=== PATIENT | female | born 1970 | race Caucasian/White ===

== ENCOUNTER 2016-05-22 22:44 | Emergency (ER) | payer OTHER ==
--- NOTE | 2016-05-23 00:07 | ED NURSING NOTES ---
Clinical Report - Nurses [facility] [address] [place] [address] 05/22/2016 22:43 Patient: SHARITA SWANN TRIAGE Triage time 2251. Acuity: LEVEL 4. Chief Complaint: INJURY TO LEFT FOOT. --22:57 Adrian Amador R.N. 22:51 05/22/16. BP: 119/69. HR: 88. RR: 16. O2 saturation: 100%. Temp: 98 F. Pain level now 09/08. --22:57 Adrian Amador R.N. Weight: 55.7 kg stated. Height/Length: 62 inches Per Patient. BMI: 22.5. --22:54 Adrian Amador R.N. Medications None. --22:53 Adrian Amador R.N. Allergies Amoxicillin. Morphine and Related. Penicillins. Sulfa Antibiotics. --22:53 Adrian Amador R.N. History Arrived by private vehicle. Historian: patient. Accompanied by friend. This occurred (about 26 hours ago). Mechanism of injury: fell. ( pt tripped over curb walking home from store. walked home after but pain/swelling increased with time.). She has had back pain. Treatment FNPS: None. PAST MEDICAL HX: ( pt up and walking on it all day today). SOCIAL HX: Heavy tobacco smoker- less than 1 pack per day. FALL RISK ASSESSMENT: Fall risk assessment completed. No fall risk identified. NUTRITIONAL RISK ASSESSMENT: The nutritional risk assessment revealed no deficiencies. FUNCTIONAL ASSESSMENT: Functional assessment: no impairments noted. LEARNING NEEDS ASSESSMENT: The learning needs assessment revealed no barriers. SKIN INTEGRITY ASSESSMENT: Skin integrity risk assessment completed. No skin integrity risk identified. --22:57 Adrian Amador R.N. PROBLEMS: Conjunctivitis. Otitis Media. Dental Pain. Flank Pain. Sprain. Costochondritis. Constipation. Gestational diabetes mellitus. Nasal Fracture. Sinusitis. Bronchitis. URI. Lifestyle / Substance Problems. Lower Extremity Pain. Fall. Myofascial Strain. Dental Abscess. Abdominal Pain. Back Pain. Dental Caries. Acute Pain. Nephrolithiasis. Diabetes Mellitus. Immunizations. . Tetanus Status. Abscess. Asthma. LNMP - Last Normal Menstrual Period. --:53 Adrian Amador R.N. Renal Colic [RuleOut]. --:53 Adrian Amador R.N. ADDITIONAL SURGERIES: Cholecystectomy. Laparoscopy. Lithotripsy. --:53 Adrian Amador R.N. Interventions ID band on patient. --22:57 Adrian Amador R.N. PHYSICAL ASSESSMENT GENERAL / NEURO / PSYCH: Oriented X 4. Alert. Appears in no acute distress. EXTREMITIES: Capillary refill is less than 2 seconds in the extremities. Extremity pulses are within normal limits. Extremities exhibit normal ROM. Neuro-vascular status intact to the extremity. Normal gait. Left foot: tenderness and swelling of the plantar aspect of the foot and first toe. Limited weight bearing secondary to pain. SKIN: Skin intact. Skin is warm and dry. --:57 Adrian Amador R.N. NURSING PROGRESS NOTES Extremity elevated. Reassurance given. Patient identifiers checked. Call light placed in reach. Bed placed in lowest position. Brakes of bed on. --22:58 Adrian Amador R.N. ( stiff soled shoe applied to left foot). --00:15 Carlos Alexis, ARTURO Rfid Engineer. DISPOSITION / DISCHARGE Departure time: 6. Condition at departure: improved. No learning barriers present. Discharge instructions provided and reviewed with the patient. Reviewed warnings. Reviewed medication(s). Treatments reviewed. Activity restrictions reviewed. Patient verbalized understanding. Written instructions provided in Bhutanese. The patient was discharged by the physician. She was discharged home and accompanied by family. She left the Emergency Department ambulatory and via private vehicle. Patient driving. --00:18 Adrian Amador R.N. 00:17 05/23/16. BP: 120/70. HR: 88. RR: 16. O2 saturation: 98%. Temp: 98 F. Pain level now 3/10. --00:18 Adrian Amador R.N. Locked/Released at 05/23/2016 0:18 by Adrian Amador R.N.
--- NOTE | 2016-05-23 00:07 | ED ORDER SUMMARY ---
..... Patient: SHARITA SWANN OrderSheet [facility] VisitID: [id number] [address] [place] [address] 45y, F Registration Date/Time: 05/22/2016 ORDER SHEET Weight: 55.7 kg (stated) Allergies: Amoxicillin, Morphine and Related, Penicillins, Sulfa Antibiotics GENERAL ORDERS: Foot 3V Left Urgent (23:50 05/22/2016 Re DASILVA) (Ack 23:56 Maximo) (0:02 Shaina) Orthopedic Shoe (00:15 05/23/2016 Jeromy ER Supervisor Dog License Officer verbal order read back to Re DASILVA) (0:15 Jeromy ER Supervisor Dog License Officer) MEDICATION ORDERS: IV FLUIDS: ORDER SHEET NOTES: [Electronically signed by Adrian Amador R.N. (00:18 05/23/2016)] [Electronically signed by Felipe Cruz MD (08:05 05/23/2016)] [Electronically locked/signed by Adrian Amador R.N. (00:18 05/23/2016)]
--- NOTE | 2016-05-23 00:07 | ED CLINICAL REPORT ---
Clinical Report - Physicians/Mid Levels [facility] [address] [place] [address] 05/22/2016 22:43 Patient: SHARITA SWANN Time Seen: 22:57. Arrived- By private vehicle. Historian- patient. HISTORY OF PRESENT ILLNESS Chief Complaint: Injury to the left foot. The injury happened yesterday. The patient sustained a moderate direct blow- kicked an object. Occurred on a street. Patient is experiencing moderate pain. No other injury. REVIEW OF SYSTEMS The patient complains of pain on weight bearing. She has had new onset of swelling of the left foot (mild). No suspected foreign body, skin laceration, chills, fever or sweats. No calf pain, chest pain, cough, difficulty breathing or pedal edema. No palpitations, abdominal pain, constipation, diarrhea or nausea. No vomiting or urinary problems. She has had lower back pain (chronically). It has been similar to previous symptoms. All systems otherwise negative, except as recorded above. PAST HISTORY Problems: Conjunctivitis. Otitis Media. Dental Pain. Flank Pain. Sprain. Costochondritis. Constipation. Gestational diabetes mellitus. Nasal Fracture. Sinusitis. Bronchitis. URI. Lifestyle / Substance Problems. Lower Extremity Pain. Fall. Myofascial Strain. Dental Abscess. Abdominal Pain. Back Pain. Dental Caries. Acute Pain. Nephrolithiasis. Diabetes Mellitus. Tetanus Status. Abscess. Asthma. Additional Surgeries: Cholecystectomy. Laparoscopy. Lithotripsy. Medications: None. Allergies: Amoxicillin. Morphine and Related. Penicillins. Sulfa Antibiotics. SOCIAL HISTORY Current every day heavy tobacco smoker (cigarette)- less than 1 pack per day. FAMILY HISTORY No significant family medical history. ADDITIONAL NOTES The nursing notes have been reviewed. PHYSICAL EXAM Vital Signs: 05/22/2016 22:51 BP: 119/69. HR: 88. RR: 16. O2 saturation: 100%. Temp: 98 F. Have been reviewed. Appearance: Alert. Head: Head atraumatic. Eyes: Pupils equal, round and reactive to light. ENT: Pharynx normal. Neck: Neck supple. CVS: Normal heart rate and rhythm. Heart sounds normal. Respiratory: No respiratory distress. Breath sounds normal. Abdomen: No visible injury. Soft and nontender. Bowel sounds normal. No organomegaly. No mass. Back: Normal inspection. Skin: Skin intact. Skin warm and dry. Extremities: Left foot: mild tenderness and swelling of the plantar aspect of the mid foot. Neurovascular intact distally. No ecchymosis, puncture wound or deformity. Extremities otherwise negative. Neuro, Vascular and Tendons: Vascular status intact. Sensation intact. Motor intact. Neuro: No motor deficit. No sensory deficit. LABS, X-RAYS, AND EKG Lt Foot X-ray: No fracture. The X-rays were independently viewed by me. PROGRESS AND PROCEDURES Course of Care: Patient is stable. Patient/family counseled. Old medical records reviewed. Disposition: Discharged. Condition: stable. CLINICAL IMPRESSION Contusion to the left foot. INSTRUCTIONS Apply ice for 20 minutes four times a day. Don't apply ice directly to skin and don't use while asleep. Wear post-op shoe until released. Warnings: COMPLICATIONS: Complications from this condition are possible. Future problems may include loss of function, pain and deformity. It is important to follow up with a physician for further evaluation and treatment. GENERAL WARNINGS: Return or contact your physician immediately if your condition worsens or changes unexpectedly, if not improving as expected, or if other problems arise. OTC Medications: Motrin (available over the counter): take according to label instructions. Understanding of the discharge instructions verbalized by patient. Follow-up with: Mani Gooden DPM, Podiatry, , [facility], [address] [place] [address], [address], [place] [address] Follow up. Call for the next available appointment. (Electronically signed by Felipe Cruz MD 05/23/2016 8:05)
--- NOTE | 2016-05-23 00:07 | ED CLINICAL REPORT ---
Clinical Report - Physicians/Mid Levels [facility] [address] [place] [address] 05/22/2016 22:43 Patient: SHARITA SWANN Time Seen: 22:57. Arrived- By private vehicle. Historian- patient. HISTORY OF PRESENT ILLNESS Chief Complaint: Injury to the left foot. The injury happened yesterday. The patient sustained a moderate direct blow- kicked an object. Occurred on a street. Patient is experiencing moderate pain. No other injury. REVIEW OF SYSTEMS The patient complains of pain on weight bearing. She has had new onset of swelling of the left foot (mild). No suspected foreign body, skin laceration, chills, fever or sweats. No calf pain, chest pain, cough, difficulty breathing or pedal edema. No palpitations, abdominal pain, constipation, diarrhea or nausea. No vomiting or urinary problems. She has had lower back pain (chronically). It has been similar to previous symptoms. All systems otherwise negative, except as recorded above. PAST HISTORY Problems: Conjunctivitis. Otitis Media. Dental Pain. Flank Pain. Sprain. Costochondritis. Constipation. Gestational diabetes mellitus. Nasal Fracture. Sinusitis. Bronchitis. URI. Lifestyle / Substance Problems. Lower Extremity Pain. Fall. Myofascial Strain. Dental Abscess. Abdominal Pain. Back Pain. Dental Caries. Acute Pain. Nephrolithiasis. Diabetes Mellitus. Tetanus Status. Abscess. Asthma. Additional Surgeries: Cholecystectomy. Laparoscopy. Lithotripsy. Medications: None. Allergies: Amoxicillin. Morphine and Related. Penicillins. Sulfa Antibiotics. SOCIAL HISTORY Current every day heavy tobacco smoker (cigarette)- less than 1 pack per day. FAMILY HISTORY No significant family medical history. ADDITIONAL NOTES The nursing notes have been reviewed. PHYSICAL EXAM Vital Signs: 05/22/2016 22:51 BP: 119/69. HR: 88. RR: 16. O2 saturation: 100%. Temp: 98 F. Have been reviewed. Appearance: Alert. Head: Head atraumatic. Eyes: Pupils equal, round and reactive to light. ENT: Pharynx normal. Neck: Neck supple. CVS: Normal heart rate and rhythm. Heart sounds normal. Respiratory: No respiratory distress. Breath sounds normal. Abdomen: No visible injury. Soft and nontender. Bowel sounds normal. No organomegaly. No mass. Back: Normal inspection. Skin: Skin intact. Skin warm and dry. Extremities: Left foot: mild tenderness and swelling of the plantar aspect of the mid foot. Neurovascular intact distally. No ecchymosis, puncture wound or deformity. Extremities otherwise negative. Neuro, Vascular and Tendons: Vascular status intact. Sensation intact. Motor intact. Neuro: No motor deficit. No sensory deficit. LABS, X-RAYS, AND EKG Lt Foot X-ray: No fracture. The X-rays were independently viewed by me. PROGRESS AND PROCEDURES Course of Care: Patient is stable. Patient/family counseled. Old medical records reviewed. Disposition: Discharged. Condition: stable. CLINICAL IMPRESSION Contusion to the left foot. INSTRUCTIONS Apply ice for 20 minutes four times a day. Don't apply ice directly to skin and don't use while asleep. Wear post-op shoe until released. Warnings: COMPLICATIONS: Complications from this condition are possible. Future problems may include loss of function, pain and deformity. It is important to follow up with a physician for further evaluation and treatment. GENERAL WARNINGS: Return or contact your physician immediately if your condition worsens or changes unexpectedly, if not improving as expected, or if other problems arise. OTC Medications: Motrin (available over the counter): take according to label instructions. Understanding of the discharge instructions verbalized by patient. Follow-up with: Mani Gooden DPM, Podiatry, , [facility], [address] [place] [address], [address], [place] [address] Follow up. Call for the next available appointment. (Electronically signed by Felipe Cruz MD 05/23/2016 8:05)
--- NOTE | 2016-05-23 00:07 | ED ORDER SUMMARY ---
..... Patient: SHARITA SWANN OrderSheet [facility] VisitID: [id number] [address] [place] [address] 45y, F Registration Date/Time: 05/22/2016 ORDER SHEET Weight: 55.7 kg (stated) Allergies: Amoxicillin, Morphine and Related, Penicillins, Sulfa Antibiotics GENERAL ORDERS: Foot 3V Left Urgent (23:50 05/22/2016 Re DASILVA) (Ack 23:56 Maximo) (0:02 Shaina) Orthopedic Shoe (00:15 05/23/2016 Jeromy ER Stock Fitter verbal order read back to Re DASILVA) (0:15 Jeromy ER Stock Fitter) MEDICATION ORDERS: IV FLUIDS: ORDER SHEET NOTES: [Electronically signed by Adrian Amador R.N. (00:18 05/23/2016)] [Electronically signed by Felipe Cruz MD (08:05 05/23/2016)] [Electronically locked/signed by Adrian Amador R.N. (00:18 05/23/2016)]
--- NOTE | 2016-05-23 00:07 | ED NURSING NOTES ---
Clinical Report - Nurses [facility] [address] [place] [address] 05/22/2016 22:43 Patient: SHARITA SWANN TRIAGE Triage time 2251. Acuity: LEVEL 4. Chief Complaint: INJURY TO LEFT FOOT. --22:57 Adrian Amador R.N. 22:51 05/22/16. BP: 119/69. HR: 88. RR: 16. O2 saturation: 100%. Temp: 98 F. Pain level now 09/08. --22:57 Adrian Amador R.N. Weight: 55.7 kg stated. Height/Length: 62 inches Per Patient. BMI: 22.5. --22:54 Adrian Amador R.N. Medications None. --22:53 Adrian Amador R.N. Allergies Amoxicillin. Morphine and Related. Penicillins. Sulfa Antibiotics. --22:53 Adrian Amador R.N. History Arrived by private vehicle. Historian: patient. Accompanied by friend. This occurred (about 26 hours ago). Mechanism of injury: fell. ( pt tripped over curb walking home from store. walked home after but pain/swelling increased with time.). She has had back pain. Treatment DIABETES TRAINER: None. PAST MEDICAL HX: ( pt up and walking on it all day today). SOCIAL HX: Heavy tobacco smoker- less than 1 pack per day. FALL RISK ASSESSMENT: Fall risk assessment completed. No fall risk identified. NUTRITIONAL RISK ASSESSMENT: The nutritional risk assessment revealed no deficiencies. FUNCTIONAL ASSESSMENT: Functional assessment: no impairments noted. LEARNING NEEDS ASSESSMENT: The learning needs assessment revealed no barriers. SKIN INTEGRITY ASSESSMENT: Skin integrity risk assessment completed. No skin integrity risk identified. --22:57 Adrian Amador R.N. PROBLEMS: Conjunctivitis. Otitis Media. Dental Pain. Flank Pain. Sprain. Costochondritis. Constipation. Gestational diabetes mellitus. Nasal Fracture. Sinusitis. Bronchitis. URI. Lifestyle / Substance Problems. Lower Extremity Pain. Fall. Myofascial Strain. Dental Abscess. Abdominal Pain. Back Pain. Dental Caries. Acute Pain. Nephrolithiasis. Diabetes Mellitus. Immunizations. . Tetanus Status. Abscess. Asthma. LNMP - Last Normal Menstrual Period. --:53 Adrian Amador R.N. Renal Colic [RuleOut]. --:53 Adrian Amador R.N. ADDITIONAL SURGERIES: Cholecystectomy. Laparoscopy. Lithotripsy. --:53 Adrian Amador R.N. Interventions ID band on patient. --22:57 Adrian Amador R.N. PHYSICAL ASSESSMENT GENERAL / NEURO / PSYCH: Oriented X 4. Alert. Appears in no acute distress. EXTREMITIES: Capillary refill is less than 2 seconds in the extremities. Extremity pulses are within normal limits. Extremities exhibit normal ROM. Neuro-vascular status intact to the extremity. Normal gait. Left foot: tenderness and swelling of the plantar aspect of the foot and first toe. Limited weight bearing secondary to pain. SKIN: Skin intact. Skin is warm and dry. --:57 Adrian Amador R.N. NURSING PROGRESS NOTES Extremity elevated. Reassurance given. Patient identifiers checked. Call light placed in reach. Bed placed in lowest position. Brakes of bed on. --22:58 Adrian Amador R.N. ( stiff soled shoe applied to left foot). --00:15 Carlos Alexis, ARTURO Utility Specialist. DISPOSITION / DISCHARGE Departure time: 6. Condition at departure: improved. No learning barriers present. Discharge instructions provided and reviewed with the patient. Reviewed warnings. Reviewed medication(s). Treatments reviewed. Activity restrictions reviewed. Patient verbalized understanding. Written instructions provided in [place]iboutian. The patient was discharged by the physician. She was discharged home and accompanied by family. She left the Emergency Department ambulatory and via private vehicle. Patient driving. --00:18 Adrian Amador R.N. 00:17 05/23/16. BP: 120/70. HR: 88. RR: 16. O2 saturation: 98%. Temp: 98 F. Pain level now 3/10. --00:18 Adrian Amador R.N. Locked/Released at 05/23/2016 0:18 by Adrian Amador R.N.
--- NOTE | 2016-05-23 00:34 | DIAGNOSTIC IMAGING REPORT ---
PROCEDURE: XR FOOT 3 VIEWS - LEFT INDICATION: TRAUMA/INJURY TECHNIQUE: Three views. COMPARISON: None. FINDINGS: Osseous structures, joint spaces and soft tissues are normal. IMPRESSION: 1. Normal left foot.
--- NOTE | 2016-05-23 08:06 | ED MED RECONCILIATION SUMMARY ---
Patient: SHARITA SWANN Medication Reconciliation Report [facility] VisitID: [id number] [address] [place] [address] 45y, F Registration Date/Time: 05/22/2016 Weight: 55.7 kg Height/Length: 62 in. BMI: 22.5 ALLERGIES: Amoxicillin, Morphine and Related, Penicillins, Sulfa Antibiotics The patient's Home Medications are listed below: NONE. The source(s) of the original Home Medication information: Not obtained. The following Medications were given to the patient in the Emergency Department: None. The following Medications were prescribed to the patient: Motrin (available over the counter): take according to label instructions. -- Felipe Cruz MD
--- NOTE | 2016-05-23 08:06 | ED DISCHARGE INSTRUCTIONS ---
Patient: SHARITA SWANN General Instructions [facility] VisitID: [id number] [address] [place] [address] 45y, F Registration Date/Time: 05/22/2016 Contusion to the left foot. INSTRUCTIONS Apply ice for 20 minutes four times a day. Don't apply ice directly to skin and don't use while asleep. Wear post-op shoe until released. Warnings: COMPLICATIONS: Complications from this condition are possible. Future problems may include loss of function, pain and deformity. It is important to follow up with a physician for further evaluation and treatment. GENERAL WARNINGS: Return or contact your physician immediately if your condition worsens or changes unexpectedly, if not improving as expected, or if other problems arise. OTC Medications: Motrin (available over the counter): take according to label instructions. Understanding of the discharge instructions verbalized by patient. Follow-up with: Mani Gooden DPM, Podiatry, , [facility], [address] [place] [address], [address] [address] Follow up. Call for the next available appointment. ADDITIONAL INFORMATION Contusion: Foot You have a CONTUSION of your foot. This causes local pain, swelling and sometimes bruising. There are no broken bones. This injury may take from a few days to a few weeks to heal. Home Care: 1) Keep your LEG elevated to reduce pain and swelling. This is very important during the first 48 hours. If walking causes pain, stay off the injured leg until you can walk without pain. 2) If CRUTCHES have been advised, do not bear full weight on the injured leg until you can do so without pain. You may return to sports when you are able to hop and run on the injured leg without pain. 3) Make an ice pack (ice cubes in a plastic bag, wrapped in a towel) and apply for 20 minutes every 1-2 hours the first day. Continue this 3-4 times a day until the swelling goes down. 4) You may use acetaminophen (Tylenol) or ibuprofen (Motrin, Advil) to control pain, unless another pain medicine was prescribed. [ NOTE : If you have chronic liver or kidney disease or ever had a stomach ulcer or GI bleeding, talk with your doctor before using these medicines.] Follow Up with your doctor or this facility if you are not starting to improve within the next THREE days. [NOTE: If X-rays were taken, they will be reviewed by a radiologist. You will be notified of any new findings that may affect your care.] Get Prompt Medical Attention if any of the following occur: -- Pain or swelling increases -- Toes become cold, blue, numb or tingly -- Redness, warmth or drainage from the skin Ibuprofen Oral tablet What is this medicine? IBUPROFEN (eye BYOO proe fen) is a non-steroidal anti-inflammatory drug (NSAID). It is used for dental pain, fever, headaches or migraines, osteoarthritis, rheumatoid arthritis, or painful monthly periods. It can also relieve minor aches and pains caused by a cold, flu, or sore throat. How should I use this medicine? Take this medicine by mouth with a glass of water. Follow the directions on the prescription label. Take this medicine with food if your stomach gets upset. Try to not lie down for at least 10 minutes after you take the medicine. Take your medicine at regular intervals. Do not take your medicine more often than directed. A special MedGuide will be given to you by the pharmacist with each prescription and refill. Be sure to read this information carefully each time. Talk to your elastic attacher overlock regarding the use of this medicine in children. Special care may be needed. What side effects may I notice from receiving this medicine? Side effects that you should report to your doctor or health restorative care technician as soon as possible: allergic reactions like skin rash, itching or hives, swelling of the face, lips, or tongue black or bloody stools, blood in the urine or in vomit breathing problems changes in vision chest pain general ill feeling or flu-like symptoms nausea or vomiting redness, blistering, peeling or loosening of the skin, including inside the mouth slurred speech or weakness on one side of the body stomach pain unexplained weight gain or swelling unusually weak or tired yellowing of eyes or skin Side effects that usually do not require medical attention (report to your doctor or health restorative care technician if they continue or are bothersome): constipation or diarrhea dizziness gas or heartburn stomach upset What may interact with this medicine? Do not take this medicine with any of the following medications: cidofovir ketorolac methotrexate pemetrexed This medicine may also interact with the following medications: alcohol aspirin diuretics lithium other drugs for inflammation like prednisone warfarin What if I miss a dose? If you miss a dose, take it as soon as you can. If it is almost time for your next dose, take only that dose. Do not take double or extra doses. Where should I keep my medicine? Keep out of the reach of children. Store at room temperature between 15 and 30 degrees C (59 and 86 degrees F). Keep container tightly closed. Throw away any unused medicine after the expiration date. What should I tell my health care provider before I take this medicine? They need to know if you have any of these conditions: asthma cigarette smoker drink more than 3 alcohol containing drinks a day heart disease or circulation problems such as heart failure or leg edema (fluid retention) high blood pressure kidney disease liver disease stomach bleeding or ulcers an unusual or allergic reaction to ibuprofen, aspirin, other NSAIDS, other medicines, foods, dyes, or preservatives or trying to get breast-feeding What should I watch for while using this medicine? Tell your doctor or healthcare professional if your symptoms do not start to get better or if they get worse. This medicine does not prevent heart attack or stroke. In fact, this medicine may increase the chance of a heart attack or stroke. The chance may increase with longer use of this medicine and in people who have heart disease. If you take aspirin to prevent heart attack or stroke, talk with your doctor or health restorative care technician. Do not take other medicines that contain aspirin, ibuprofen, or naproxen with this medicine. Side effects such as stomach upset, nausea, or ulcers may be more likely to occur. Many medicines available without a prescription should not be taken with this medicine. This medicine can cause ulcers and bleeding in the stomach and intestines at any time during treatment. Ulcers and bleeding can happen without warning symptoms and can cause . To reduce your risk, do not smoke cigarettes or drink alcohol while you are taking this medicine. You may get drowsy or dizzy. Do not drive, use machinery, or do anything that needs mental alertness until you know how this medicine affects you. Do not stand or sit up quickly, especially if you are an older patient. This reduces the risk of dizzy or fainting spells. This medicine can cause you to bleed more easily. Try to avoid damage to your teeth and gums when you brush or floss your teeth. You have been given the following additional information: Contusion, Foot Ibuprofen Oral tablet (Electronically signed by Felipe Cruz MD 05/23/2016 8:05)
--- NOTE | 2016-05-23 08:06 | ED DISCHARGE INSTRUCTIONS ---
Patient: SHARITA SWANN General Instructions [facility] VisitID: [id number] [address] [place] [address] 45y, F Registration Date/Time: 05/22/2016 Contusion to the left foot. INSTRUCTIONS Apply ice for 20 minutes four times a day. Don't apply ice directly to skin and don't use while asleep. Wear post-op shoe until released. Warnings: COMPLICATIONS: Complications from this condition are possible. Future problems may include loss of function, pain and deformity. It is important to follow up with a physician for further evaluation and treatment. GENERAL WARNINGS: Return or contact your physician immediately if your condition worsens or changes unexpectedly, if not improving as expected, or if other problems arise. OTC Medications: Motrin (available over the counter): take according to label instructions. Understanding of the discharge instructions verbalized by patient. Follow-up with: Mani Gooden DPM, Podiatry, , [facility], [address] [place] [address], [address] [address] Follow up. Call for the next available appointment. ADDITIONAL INFORMATION Contusion: Foot You have a CONTUSION of your foot. This causes local pain, swelling and sometimes bruising. There are no broken bones. This injury may take from a few days to a few weeks to heal. Home Care: 1) Keep your LEG elevated to reduce pain and swelling. This is very important during the first 48 hours. If walking causes pain, stay off the injured leg until you can walk without pain. 2) If CRUTCHES have been advised, do not bear full weight on the injured leg until you can do so without pain. You may return to sports when you are able to hop and run on the injured leg without pain. 3) Make an ice pack (ice cubes in a plastic bag, wrapped in a towel) and apply for 20 minutes every 1-2 hours the first day. Continue this 3-4 times a day until the swelling goes down. 4) You may use acetaminophen (Tylenol) or ibuprofen (Motrin, Advil) to control pain, unless another pain medicine was prescribed. [ NOTE : If you have chronic liver or kidney disease or ever had a stomach ulcer or GI bleeding, talk with your doctor before using these medicines.] Follow Up with your doctor or this facility if you are not starting to improve within the next THREE days. [NOTE: If X-rays were taken, they will be reviewed by a radiologist. You will be notified of any new findings that may affect your care.] Get Prompt Medical Attention if any of the following occur: -- Pain or swelling increases -- Toes become cold, blue, numb or tingly -- Redness, warmth or drainage from the skin Ibuprofen Oral tablet What is this medicine? IBUPROFEN (eye BYOO proe fen) is a non-steroidal anti-inflammatory drug (NSAID). It is used for dental pain, fever, headaches or migraines, osteoarthritis, rheumatoid arthritis, or painful monthly periods. It can also relieve minor aches and pains caused by a cold, flu, or sore throat. How should I use this medicine? Take this medicine by mouth with a glass of water. Follow the directions on the prescription label. Take this medicine with food if your stomach gets upset. Try to not lie down for at least 10 minutes after you take the medicine. Take your medicine at regular intervals. Do not take your medicine more often than directed. A special MedGuide will be given to you by the pharmacist with each prescription and refill. Be sure to read this information carefully each time. Talk to your property developer regarding the use of this medicine in children. Special care may be needed. What side effects may I notice from receiving this medicine? Side effects that you should report to your doctor or health elderly caregiver as soon as possible: allergic reactions like skin rash, itching or hives, swelling of the face, lips, or tongue black or bloody stools, blood in the urine or in vomit breathing problems changes in vision chest pain general ill feeling or flu-like symptoms nausea or vomiting redness, blistering, peeling or loosening of the skin, including inside the mouth slurred speech or weakness on one side of the body stomach pain unexplained weight gain or swelling unusually weak or tired yellowing of eyes or skin Side effects that usually do not require medical attention (report to your doctor or health elderly caregiver if they continue or are bothersome): constipation or diarrhea dizziness gas or heartburn stomach upset What may interact with this medicine? Do not take this medicine with any of the following medications: cidofovir ketorolac methotrexate pemetrexed This medicine may also interact with the following medications: alcohol aspirin diuretics lithium other drugs for inflammation like prednisone warfarin What if I miss a dose? If you miss a dose, take it as soon as you can. If it is almost time for your next dose, take only that dose. Do not take double or extra doses. Where should I keep my medicine? Keep out of the reach of children. Store at room temperature between 15 and 30 degrees C (59 and 86 degrees F). Keep container tightly closed. Throw away any unused medicine after the expiration date. What should I tell my health care provider before I take this medicine? They need to know if you have any of these conditions: asthma cigarette smoker drink more than 3 alcohol containing drinks a day heart disease or circulation problems such as heart failure or leg edema (fluid retention) high blood pressure kidney disease liver disease stomach bleeding or ulcers an unusual or allergic reaction to ibuprofen, aspirin, other NSAIDS, other medicines, foods, dyes, or preservatives or trying to get breast-feeding What should I watch for while using this medicine? Tell your doctor or healthcare professional if your symptoms do not start to get better or if they get worse. This medicine does not prevent heart attack or stroke. In fact, this medicine may increase the chance of a heart attack or stroke. The chance may increase with longer use of this medicine and in people who have heart disease. If you take aspirin to prevent heart attack or stroke, talk with your doctor or health elderly caregiver. Do not take other medicines that contain aspirin, ibuprofen, or naproxen with this medicine. Side effects such as stomach upset, nausea, or ulcers may be more likely to occur. Many medicines available without a prescription should not be taken with this medicine. This medicine can cause ulcers and bleeding in the stomach and intestines at any time during treatment. Ulcers and bleeding can happen without warning symptoms and can cause . To reduce your risk, do not smoke cigarettes or drink alcohol while you are taking this medicine. You may get drowsy or dizzy. Do not drive, use machinery, or do anything that needs mental alertness until you know how this medicine affects you. Do not stand or sit up quickly, especially if you are an older patient. This reduces the risk of dizzy or fainting spells. This medicine can cause you to bleed more easily. Try to avoid damage to your teeth and gums when you brush or floss your teeth. You have been given the following additional information: Contusion, Foot Ibuprofen Oral tablet (Electronically signed by Felipe Cruz MD 05/23/2016 8:05)
--- NOTE | 2016-05-23 08:06 | ED MAR SUMMARY ---
..... Medication Administration Record [facility] [address], [place] [id number] Patient: SHARITA SWANN Visit ID: [id number] 45y, F Weight: 55.7 kg Height/Length: 62 in BMI: 22.5 ALLERGIES: Amoxicillin, Morphine and Related, Penicillins, Sulfa Antibiotics
--- NOTE | 2016-05-23 08:06 | ED MED RECONCILIATION SUMMARY ---
Patient: SHARITA SWANN Medication Reconciliation Report [facility] VisitID: [id number] [address] [place] [address] 45y, F Registration Date/Time: 05/22/2016 Weight: 55.7 kg Height/Length: 62 in. BMI: 22.5 ALLERGIES: Amoxicillin, Morphine and Related, Penicillins, Sulfa Antibiotics The patient's Home Medications are listed below: NONE. The source(s) of the original Home Medication information: Not obtained. The following Medications were given to the patient in the Emergency Department: None. The following Medications were prescribed to the patient: Motrin (available over the counter): take according to label instructions. -- Felipe Cruz MD
--- NOTE | 2016-05-23 08:06 | ED MAR SUMMARY ---
..... Medication Administration Record [facility] [address], [place] [id number] Patient: SHARITA SWANN Visit ID: [id number] 45y, F Weight: 55.7 kg Height/Length: 62 in BMI: 22.5 ALLERGIES: Amoxicillin, Morphine and Related, Penicillins, Sulfa Antibiotics
== END 2016-05-23 00:16 | disposition home or self-care (01) ==
LOC: ED SRH 22:44
DX: S90.32XA Contusion of left foot, initial encounter (principal); W22.8XXA Striking against or struck by other objects, initial encounter; Y93.01 Activity, walking, marching and hiking; Y92.410 Unspecified street and highway as the place of occurrence of the external cause; E11.9 Type 2 diabetes mellitus without complications; F17.210 Nicotine dependence, cigarettes, uncomplicated; Z90.49 Acquired absence of other specified parts of digestive tract; Z88.0 Allergy status to penicillin; Z88.1 Allergy status to other antibiotic agents

== ENCOUNTER 2016-07-21 00:10 | Emergency (ER) | payer OTHER ==
--- NOTE | 2016-07-21 00:32 | ED ORDER SUMMARY ---
..... Patient: SHARITA SWANN OrderSheet [facility] VisitID: [id number] [address] [place] [address] 45y, F Registration Date/Time: 07/21/2016 ORDER SHEET Weight: 54.4 kg Allergies: Sulfa Antibiotics, Amoxicillin, Penicillin, morphine GENERAL ORDERS: MEDICATION ORDERS: Clindamycin PO 450 mg (PO once now) (00:30 07/21/2016 Dmitriy Fry) ([facility] IV FLUIDS: ORDER SHEET NOTES: [Electronically signed by Eloina Wiley (00:46 07/21/2016)] [Electronically signed by Seun Lee Dr. (07:15 07/22/2016)] [Electronically locked/signed by Eloina Wiley (00:46 07/21/2016)]
--- NOTE | 2016-07-21 00:32 | ED CLINICAL REPORT ---
Clinical Report - Physicians/Mid Levels [facility] [address] [place] [address] 07/21/2016 0:11 Patient: SHARITA SWANN Time Seen: 0022. Arrived- By private vehicle. Historian- patient. HISTORY OF PRESENT ILLNESS Chief Complaint: DENTAL PAIN. This started past several days and is still present and worsening. It was abrupt in onset and has been constant but is not gone now. Pain described as moderate. The patient has had toothache. (no recent dental procedures.). Similar symptoms previously: Many times. Recent medical care: Not recently seen/assessed. REVIEW OF SYSTEMS No fever, difficulty breathing, nausea, skin rash or vomiting. All systems otherwise negative, except as recorded above. PAST HISTORY See nurses notes. Medications: None. Allergies: Amoxicillin. morphine. Penicillin. Sulfa Antibiotics. SOCIAL HISTORY Smoker- current status unknown. No alcohol use or drug use. No recent travel. Is a local resident. ADDITIONAL NOTES The nursing notes have been reviewed. PHYSICAL EXAM Vital Signs: 07/21/2016 00:18 BP: 120/78. HR: 87. RR: 16. O2 saturation: 100%. Temp: 97.5 F. Blood pressure normal. Oxygen saturation normal. Appearance: Alert. No acute distress. Head: Normal external inspection. Eyes: Pupils equal, round and reactive to light. Conjunctivae and eyelids normal. ENT: Moderate, extensive dental decay (lower left first molar). Ears normal. Nose normal. Pharynx normal. Lips normal. Gums normal. No trismus present. Uvula midline. Neck: Trachea midline. No adenopathy. CVS: Normal heart rate and rhythm. Heart sounds normal. Pulses normal. Respiratory: No respiratory distress. Breath sounds normal. Chest nontender. Abdomen: Soft and nontender. No organomegaly. PROGRESS AND PROCEDURES Course of Care: The patient is a pleasant 45 yo F presenting for evaluation of dental pain. Patient has been evaluated for retropharyngeal abscess, Ludwigs angina, acute necrotizing ulcerative gingivitis, and peritonsillar abscess. The exam findings are not consistent with any of these etiologies. Evidence for dental pain noted on examination. No concern for airway compromise at this time. Patient appears nontoxic. Vital signs are otherwise unremarkable. Do not feel patient is septic at this time. Patient be managed conservatively at this time with antibiotics and nonsteroidal anti-inflammatory medications as tolerated. Patient be instructed to avoid nonsteroidal anti-inflammatory medications if theyre allergic or have intolerances. Did not feel patient needs to be admitted to the hospital or require further emergency department workup/evaluation. Encouraged patient to follow up with the dentist as soon as possible ideally within the next 2 or 3 days. Reviewed risks and benefits of the procedure for dental block. Patient declines at this time. Patient has been reevaluated. No evidence of airway compromise. Patient continues to be nontoxic and in no acute distress. I discussed the patient workup, diagnosis, home care, follow-up, and return precautions. All questions answered. The patient expressed understanding of these instructions and was agreeable to them. CLINICAL IMPRESSION Dental caries (localized) acute right facial pain. INSTRUCTIONS Warnings: GENERAL WARNINGS: Return or contact your physician immediately if your condition worsens or changes unexpectedly, if not improving as expected, or if other problems arise. Specifically return if pain, vomiting, bleeding, breathing difficulty or fever. Your Current Medications: CONTINUE TAKING THE FOLLOWING MEDICATIONS: None*. Prescription Medications: Clindamycin every 8 hours for 7 days. No refill. (450 mg PO. Disp suff quant. substitution allowed.) Follow-up: Return to the emergency department as needed. Follow up with your doctor in three days. Reason for referral: recheck today's concerns. Summary of care provided to patient via paper. Screening today revealed the patient's blood pressure to be in the normal range. The patient should follow up with a primary care provider for blood pressure management. Understanding of the discharge instructions verbalized by patient. (Electronically signed by Seun Lee Dr. 07/22/2016 7:15)
--- NOTE | 2016-07-21 00:32 | ED NURSING NOTES ---
Clinical Report - Nurses [facility] [address] [place] [address] 07/21/2016 0:11 Patient: SHARITA SWANN TRIAGE Triage time 0015. Acuity: LEVEL 4. Chief Complaint: RIGHT LOWER TOOTHACHE and JAW PAIN and SWELLING OF JAW / FACE. Alert. No acute distress. --00:22 Eloina Wiley 00:18 07/21/16. BP: 120/78. HR: 87. RR: 16. O2 saturation: 100%. Temp: 97.5 F. Pain level now 9/10. --00:22 Eloina Wiley. Weight: 54.4 kg. Height/Length: 62 inches. BMI: 22. --00:17 Eloina Wiely. Medications None. --00:19 Eloina Wiley. Medication/allergy information source: the patient. --00:22 Eloina Wiley. Allergies Sulfa Antibiotics. --00:19 Eloina Wiley Amoxicillin. --00:19 Eloina Wiley Penicillin. --00:19 Eloina Wiley morphine. --00:20 Eloina Wiley. History Arrived by private vehicle. Historian: patient. Unaccompanied. This started yesterday. She has no dental appointment scheduled. She has had a toothache. Treatment [facility]: None. SOCIAL HX: Heavy tobacco smoker (cigarette)- less than 1 pack per day. History of drug use. (denies use or hx). --00:22 Eloina Wiley. PROBLEMS: Contusion. Conjunctivitis. Otitis Media. Dental Pain. Flank Pain. Sprain. Costochondritis. Constipation. Gestational diabetes mellitus. Nasal Fracture. Sinusitis. Bronchitis. URI. Lifestyle / Substance Problems. Lower Extremity Pain. Fall. Myofascial Strain. Abdominal Pain. Dental Caries. Nephrolithiasis. Abscess. Asthma. --00:20 Eloina Wiley. ADDITIONAL SURGERIES: Cholecystectomy. Laparoscopy. Lithotripsy. --00:20 Eloina Wiley. Interventions ID band on patient. To treatment room. --00:22 Eloina Wiley. PHYSICAL ASSESSMENT Ambulatory to room. GENERAL / NEURO / PSYCH: Alert. Oriented X 4. Appears in no acute distress. ( appears under the influence, poor focus, some garbled speech, unable to sit still, poor eye contact). HEENT: Pharynx within normal limits. Voice within normal limits. Dental decay. Mucous membranes are pink. RESPIRATORY: Respirations not labored. CVS: Capillary refill less than 2 seconds. SKIN: Skin is warm and dry. Normal skin turgor. --00:23 Eloina Wiley. NURSING PROGRESS NOTES Reassurance given. Call light placed in reach. Side rails up x 1. Bed placed in lowest position. Brakes of bed on. --00:23 Eloina Wiley 00:45 07/21/2016 Clindamycin PO 450 mg given. Allergies verified and confirmed 5 rights. --00:45 Eloina Wiley. DISPOSITION / DISCHARGE Departure time: 0045. Condition at departure: unchanged and stable. No learning barriers present. Discharge instructions provided and reviewed with the patient. Reviewed medication(s). Patient verbalized understanding. Written instructions provided in Slovenian. The patient was discharged by the physician. She was discharged home and unaccompanied at time of discharge. She left the Emergency Department ambulatory and via private vehicle. Patient driving. --00:46 Eloina Wiley. Locked/Released at 07/21/2016 0:46 by Eloina Wiley,
--- NOTE | 2016-07-21 00:32 | ED NURSING NOTES ---
Clinical Report - Nurses [facility] [address] [place] [address] 07/21/2016 0:11 Patient: SHARITA SWANN TRIAGE Triage time 0015. Acuity: LEVEL 4. Chief Complaint: RIGHT LOWER TOOTHACHE and JAW PAIN and SWELLING OF JAW / FACE. Alert. No acute distress. --00:22 Eloina Wiley 00:18 07/21/16. BP: 120/78. HR: 87. RR: 16. O2 saturation: 100%. Temp: 97.5 F. Pain level now 9/10. --00:22 Eloina Wiley. Weight: 54.4 kg. Height/Length: 62 inches. BMI: 22. --00:17 Eloina Wiley. Medications None. --00:19 Eloina Wiley. Medication/allergy information source: the patient. --00:22 Eloina Wiley. Allergies Sulfa Antibiotics. --00:19 Eloina Wiley Amoxicillin. --00:19 Eloina Wiley Penicillin. --00:19 Eloina Wiley morphine. --00:20 Eloina Wiley. History Arrived by private vehicle. Historian: patient. Unaccompanied. This started yesterday. She has no dental appointment scheduled. She has had a toothache. 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 SOCIAL HX: Heavy tobacco smoker (cigarette)- less than 1 pack per day. History of drug use. (denies use or hx). --00:22 Eloina Wiley. PROBLEMS: Contusion. Conjunctivitis. Otitis Media. Dental Pain. Flank Pain. Sprain. Costochondritis. Constipation. Gestational diabetes mellitus. Nasal Fracture. Sinusitis. Bronchitis. URI. Lifestyle / Substance Problems. Lower Extremity Pain. Fall. Myofascial Strain. Abdominal Pain. Dental Caries. Nephrolithiasis. Abscess. Asthma. --00:20 Eloina Wiley. ADDITIONAL SURGERIES: Cholecystectomy. Laparoscopy. Lithotripsy. --00:20 Eloina Wiley. Interventions ID band on patient. To treatment room. --00:22 Eloina Wiley. PHYSICAL ASSESSMENT Ambulatory to room. GENERAL / NEURO / PSYCH: Alert. Oriented X 4. Appears in no acute distress. ( appears under the influence, poor focus, some garbled speech, unable to sit still, poor eye contact). HEENT: Pharynx within normal limits. Voice within normal limits. Dental decay. Mucous membranes are pink. RESPIRATORY: Respirations not labored. CVS: Capillary refill less than 2 seconds. SKIN: Skin is warm and dry. Normal skin turgor. --00:23 Eloina Wiley. NURSING PROGRESS NOTES Reassurance given. Call light placed in reach. Side rails up x 1. Bed placed in lowest position. Brakes of bed on. --00:23 Eloina Wiley 00:45 07/21/2016 Clindamycin PO 450 mg given. Allergies verified and confirmed 5 rights. --00:45 Eloina Wiley. DISPOSITION / DISCHARGE Departure time: 0045. Condition at departure: unchanged and stable. No learning barriers present. Discharge instructions provided and reviewed with the patient. Reviewed medication(s). Patient verbalized understanding. Written instructions provided in Persian. The patient was discharged by the physician. She was discharged home and unaccompanied at time of discharge. She left the Emergency Department ambulatory and via private vehicle. Patient driving. --00:46 Eloina Wiley. Locked/Released at 07/21/2016 0:46 by Eloina Wiley,
--- NOTE | 2016-07-21 00:32 | ED ORDER SUMMARY ---
..... Patient: SHARITA SWANN [facility] VisitID: [id number] [address] [place] [address] 45y, F Registration Date/Time: 07/21/2016 ORDER SHEET Weight: 54.4 kg Allergies: Sulfa Antibiotics, Amoxicillin, Penicillin, morphine GENERAL ORDERS: MEDICATION ORDERS: Clindamycin PO 450 mg (PO once now) (00:30 07/21/2016 Dmitriy Fry) [facility] IV FLUIDS: ORDER SHEET NOTES: [Electronically signed by Eloina Wiley (00:46 07/21/2016)] [Electronically signed by Seun Lee Dr. (07:15 07/22/2016)] [Electronically locked/signed by Eloina Wiley (00:46 07/21/2016)]
--- NOTE | 2016-07-22 07:15 | ED DISCHARGE INSTRUCTIONS ---
Patient: SHARITA SWANN General Instructions [facility] VisitID: [id number] [place] [address] 45y, F Registration Date/Time: 07/21/2016 Dental caries (localized) acute right facial pain. INSTRUCTIONS Warnings: GENERAL WARNINGS: Return or contact your physician immediately if your condition worsens or changes unexpectedly, if not improving as expected, or if other problems arise. Specifically return if pain, vomiting, bleeding, breathing difficulty or fever. Your Current Medications: CONTINUE TAKING THE FOLLOWING MEDICATIONS: None*. Prescription Medications: Clindamycin every 8 hours for 7 days. No refill. (450 mg PO. Disp suff quant. substitution allowed.) Follow-up: Return to the emergency department as needed. Follow up with your doctor in three days. Reason for referral: recheck today's concerns. Summary of care provided to patient via paper. Screening today revealed the patient's blood pressure to be in the normal range. The patient should follow up with a primary care provider for blood pressure management. Understanding of the discharge instructions verbalized by patient. ADDITIONAL INFORMATION Dental Cavity A dental cavity is a pit or crater in the enamel surface of the tooth. This exposes the sensitive inner layer of the tooth and causes pain. If untreated, the cavity will get bigger and may cause an infection or abscess in the root of the tooth. An infection in the tooth is a much more serious problem and may require a root canal or removal of the entire tooth. The tooth pain may be made worse by drinking hot or cold fluids. It may spread from the tooth to the ear or jaw on the same side. Home Care: Avoid hot and cold foods, and liquids since your tooth may be sensitive to temperature changes. If your tooth is chipped or cracked, or if there is a large open cavity, apply OIL OF CLOVES (available jhyi-jkz-aszcddo in drug stores) directly to the tooth to reduce pain. Some pharmacies carry an gbsh-hmn-igheacm "toothache kit." This contains oil of cloves and a paste, which can be applied over the exposed tooth to decrease sensitivity. An ice pack on your jaw over the sore area may help to reduce pain. You may use acetaminophen (Tylenol) or ibuprofen (Motrin, Advil) to control pain, unless another pain medicine was prescribed. [ NOTE: If you have liver disease or ever had a stomach ulcer, talk with your doctor before using these medicines.] If you have signs of an infection, an antibiotic will be given. Take it as directed. Follow-Up with your dentist as directed. Although your pain may go away with the treatment given, only a dentist can fully evaluate and treat this problem to prevent further tooth damage. Get Prompt Medical Attention if any of the following occur: Redness or swelling of the face Pain worsens or spreads to the neck Fever over 100.5 F (38C) Unusual drowsiness; headache or stiff neck; weakness or fainting Pus drains from the tooth or gum Difficulty swallowing or breathing Dental Abscess A dental abscess is an infection of the tooth socket. It often starts with a crack or cavity in the tooth. A pocket of pus forms between the tooth and the bone. The infection causes pain and swelling of the gum, cheek or jaw. The pain is often made worse by drinking hot or cold fluids, or biting on hard foods. Pain may be felt in the facial sinus or in the ear. A severe infection can interfere with swallowing and breathing. In the emergency department or clinic, you will be started on an antibiotic. However, final treatment requires drainage of the pus. This can be done by removing the tooth or performing a root canal. A root canal is done by an oral surgeon and involves drilling an opening in the tooth to drain the pus. After the infection has healed, a crown is placed over the tooth. Home care The following guidelines will help you care for your abscess at home: Avoid hot and cold foods and liquids since your tooth may be sensitive to temperature changes. If your tooth is chipped or cracked, or if there is a large open cavity, applyoil of cloves(available gcsp-ucq-ahyeheu in drug stores) directly to the tooth to reduce pain. Some pharmacies carry an klaq-fmz-chvhocd "toothache kit". This contains oil of cloves and a paste, which can be applied over the exposed tooth to decrease sensitivity. Apply an ice pack (ice cubes in a plastic bag, wrapped in a towel) over the injured area for 20 minutes every 12 hours the first day for pain relief. Continue this 34 times a day until the pain and swelling goes away. You may use acetaminophen or ibuprofen to control pain, unless another medicine was prescribed. If you have chronic liver or kidney disease or ever had a stomach ulcer or GI bleeding, talk with your doctor before using these medicines. An antibiotic will be prescribed. Take it as directed until completed, even if you are feeling better sooner. Follow-up care Follow up as directed with a dentist or oral surgeon. Even though your pain may improve with the treatment given today, only a dentist or oral surgeon can provide full treatment for this problem. When to seek medical care Get prompt medical attention or contact your doctor if any of the following occur: Your face or eyelid becomes swollen or red Pain worsens or spreads to the neck Fever over 100.4F (38.0C) Unusual drowsiness; headache or stiff neck; weakness, or fainting Pus drains from the gum or tooth Difficulty talking, swallowing or breathing Unable to open your mouth wide Clindamycin Hydrochloride Oral capsule What is this medicine? CLINDAMYCIN (KLIN da BRETT sin) is a lincosamide antibiotic. It is used to treat certain kinds of bacterial infections. It will not work for colds, flu, or other viral infections. How should I use this medicine? Take this medicine by mouth with a full glass of water. Follow the directions on the prescription label. You can take this medicine with food or on an empty stomach. If the medicine upsets your stomach, take it with food. Take your medicine at regular intervals. Do not take your medicine more often than directed. Take all of your medicine as directed even if you think your are better. Do not skip doses or stop your medicine early. Talk to your medical health researcher regarding the use of this medicine in children. Special care may be needed. What side effects may I notice from receiving this medicine? Side effects that you should report to your doctor or health auto care center manager as soon as possible: allergic reactions like skin rash, itching or hives, swelling of the face, lips, or tongue dark urine pain on swallowing redness, blistering, peeling or loosening of the skin, including inside the mouth unusual bleeding or bruising unusually weak or tired yellowing of eyes or skin Side effects that usually do not require medical attention (report to your doctor or health auto care center manager if they continue or are bothersome): diarrhea itching in the rectal or genital area joint pain nausea, vomiting stomach pain What may interact with this medicine? chloramphenicol erythromycin kaolin products What if I miss a dose? If you miss a dose, take it as soon as you can. If it is almost time for your next dose, take only that dose. Do not take double or extra doses. Where should I keep my medicine? Keep out of the reach of children. Store at room temperature between 20 and 25 degrees C (68 and 77 degrees F). Throw away any unused medicine after the expiration date. What should I tell my health care provider before I take this medicine? They need to know if you have any of these conditions: kidney disease liver disease stomach problems like colitis an unusual or allergic reaction to clindamycin, lincomycin, or other medicines, foods, dyes like tartrazine or preservatives or trying to get breast-feeding What should I watch for while using this medicine? Tell your doctor or healthcare professional if your symptoms do not start to get better or if they get worse. Do not treat diarrhea with over the counter products. Contact your doctor if you have diarrhea that lasts more than 2 days or if it is severe and watery. You have been given the following additional information: Dental Cavity Tooth Abscess Clindamycin Hydrochloride Oral capsule (Electronically signed by Seun Lee Dr. 07/22/2016 7:15)
--- NOTE | 2016-07-22 07:15 | ED DISCHARGE INSTRUCTIONS ---
Patient: SHARITA SWANN General Instructions [facility] VisitID: [id number] [place] [address] 45y, F Registration Date/Time: 07/21/2016 Dental caries (localized) acute right facial pain. INSTRUCTIONS Warnings: GENERAL WARNINGS: Return or contact your physician immediately if your condition worsens or changes unexpectedly, if not improving as expected, or if other problems arise. Specifically return if pain, vomiting, bleeding, breathing difficulty or fever. Your Current Medications: CONTINUE TAKING THE FOLLOWING MEDICATIONS: None*. Prescription Medications: Clindamycin every 8 hours for 7 days. No refill. (450 mg PO. Disp suff quant. substitution allowed.) Follow-up: Return to the emergency department as needed. Follow up with your doctor in three days. Reason for referral: recheck today's concerns. Summary of care provided to patient via paper. Screening today revealed the patient's blood pressure to be in the normal range. The patient should follow up with a primary care provider for blood pressure management. Understanding of the discharge instructions verbalized by patient. ADDITIONAL INFORMATION Dental Cavity A dental cavity is a pit or crater in the enamel surface of the tooth. This exposes the sensitive inner layer of the tooth and causes pain. If untreated, the cavity will get bigger and may cause an infection or abscess in the root of the tooth. An infection in the tooth is a much more serious problem and may require a root canal or removal of the entire tooth. The tooth pain may be made worse by drinking hot or cold fluids. It may spread from the tooth to the ear or jaw on the same side. Home Care: Avoid hot and cold foods, and liquids since your tooth may be sensitive to temperature changes. If your tooth is chipped or cracked, or if there is a large open cavity, apply OIL OF CLOVES (available wdyb-xuk-kumceil in drug stores) directly to the tooth to reduce pain. Some pharmacies carry an cmbb-jnj-tjtdpgk "toothache kit." This contains oil of cloves and a paste, which can be applied over the exposed tooth to decrease sensitivity. An ice pack on your jaw over the sore area may help to reduce pain. You may use acetaminophen (Tylenol) or ibuprofen (Motrin, Advil) to control pain, unless another pain medicine was prescribed. [ NOTE: If you have liver disease or ever had a stomach ulcer, talk with your doctor before using these medicines.] If you have signs of an infection, an antibiotic will be given. Take it as directed. Follow-Up with your dentist as directed. Although your pain may go away with the treatment given, only a dentist can fully evaluate and treat this problem to prevent further tooth damage. Get Prompt Medical Attention if any of the following occur: Redness or swelling of the face Pain worsens or spreads to the neck Fever over 100.5 F (38C) Unusual drowsiness; headache or stiff neck; weakness or fainting Pus drains from the tooth or gum Difficulty swallowing or breathing Dental Abscess A dental abscess is an infection of the tooth socket. It often starts with a crack or cavity in the tooth. A pocket of pus forms between the tooth and the bone. The infection causes pain and swelling of the gum, cheek or jaw. The pain is often made worse by drinking hot or cold fluids, or biting on hard foods. Pain may be felt in the facial sinus or in the ear. A severe infection can interfere with swallowing and breathing. In the emergency department or clinic, you will be started on an antibiotic. However, final treatment requires drainage of the pus. This can be done by removing the tooth or performing a root canal. A root canal is done by an oral surgeon and involves drilling an opening in the tooth to drain the pus. After the infection has healed, a crown is placed over the tooth. Home care The following guidelines will help you care for your abscess at home: Avoid hot and cold foods and liquids since your tooth may be sensitive to temperature changes. If your tooth is chipped or cracked, or if there is a large open cavity, applyoil of cloves(available ukzk-rfj-ereqssp in drug stores) directly to the tooth to reduce pain. Some pharmacies carry an tcgq-heu-vupeyic "toothache kit". This contains oil of cloves and a paste, which can be applied over the exposed tooth to decrease sensitivity. Apply an ice pack (ice cubes in a plastic bag, wrapped in a towel) over the injured area for 20 minutes every 12 hours the first day for pain relief. Continue this 34 times a day until the pain and swelling goes away. You may use acetaminophen or ibuprofen to control pain, unless another medicine was prescribed. If you have chronic liver or kidney disease or ever had a stomach ulcer or GI bleeding, talk with your doctor before using these medicines. An antibiotic will be prescribed. Take it as directed until completed, even if you are feeling better sooner. Follow-up care Follow up as directed with a dentist or oral surgeon. Even though your pain may improve with the treatment given today, only a dentist or oral surgeon can provide full treatment for this problem. When to seek medical care Get prompt medical attention or contact your doctor if any of the following occur: Your face or eyelid becomes swollen or red Pain worsens or spreads to the neck Fever over 100.4F (38.0C) Unusual drowsiness; headache or stiff neck; weakness, or fainting Pus drains from the gum or tooth Difficulty talking, swallowing or breathing Unable to open your mouth wide Clindamycin Hydrochloride Oral capsule What is this medicine? CLINDAMYCIN (KLIN da BRETT sin) is a lincosamide antibiotic. It is used to treat certain kinds of bacterial infections. It will not work for colds, flu, or other viral infections. How should I use this medicine? Take this medicine by mouth with a full glass of water. Follow the directions on the prescription label. You can take this medicine with food or on an empty stomach. If the medicine upsets your stomach, take it with food. Take your medicine at regular intervals. Do not take your medicine more often than directed. Take all of your medicine as directed even if you think your are better. Do not skip doses or stop your medicine early. Talk to your pediatric rn regarding the use of this medicine in children. Special care may be needed. What side effects may I notice from receiving this medicine? Side effects that you should report to your doctor or health transitional care liaison as soon as possible: allergic reactions like skin rash, itching or hives, swelling of the face, lips, or tongue dark urine pain on swallowing redness, blistering, peeling or loosening of the skin, including inside the mouth unusual bleeding or bruising unusually weak or tired yellowing of eyes or skin Side effects that usually do not require medical attention (report to your doctor or health transitional care liaison if they continue or are bothersome): diarrhea itching in the rectal or genital area joint pain nausea, vomiting stomach pain What may interact with this medicine? chloramphenicol erythromycin kaolin products What if I miss a dose? If you miss a dose, take it as soon as you can. If it is almost time for your next dose, take only that dose. Do not take double or extra doses. Where should I keep my medicine? Keep out of the reach of children. Store at room temperature between 20 and 25 degrees C (68 and 77 degrees F). Throw away any unused medicine after the expiration date. What should I tell my health care provider before I take this medicine? They need to know if you have any of these conditions: kidney disease liver disease stomach problems like colitis an unusual or allergic reaction to clindamycin, lincomycin, or other medicines, foods, dyes like tartrazine or preservatives or trying to get breast-feeding What should I watch for while using this medicine? Tell your doctor or healthcare professional if your symptoms do not start to get better or if they get worse. Do not treat diarrhea with over the counter products. Contact your doctor if you have diarrhea that lasts more than 2 days or if it is severe and watery. You have been given the following additional information: Dental Cavity Tooth Abscess Clindamycin Hydrochloride Oral capsule (Electronically signed by Seun Lee Dr. 07/22/2016 7:15)
--- NOTE | 2016-07-22 07:16 | ED MED RECONCILIATION SUMMARY ---
Patient: SHARITA SWANN Medication Reconciliation Report [facility] VisitID: [id number] [address] [place] [address] 45y, F Registration Date/Time: 07/21/2016 Weight: 54.4 kg Height/Length: 62 in. BMI: 22.0 ALLERGIES: Amoxicillin, morphine, Penicillin, Sulfa Antibiotics The patient's Home Medications are listed below: NONE. The source(s) of the original Home Medication information: patient The following Medications were given to the patient in the Emergency Department: Clindamycin [PO] PO 450 mg, administered: 07/21/2016 12:45:00 AM The following Medications were prescribed to the patient: Clindamycin every 8 hours for 7 days. No refill.(450 mg PO. Disp suff quant. substitution allowed.) -- Seun Lee Dr.
--- NOTE | 2016-07-22 07:16 | ED MAR SUMMARY ---
..... Medication Administration Record [facility] [address] [place] [address] Patient: SHARITA SWANN Visit ID: [id number] 45y, F Weight: 54.4 kg Height/Length: 62 in BMI: 22 ALLERGIES: morphine, Penicillin, Amoxicillin, Sulfa Antibiotics Given 00:45 07/21/2016 Eloina Wiley, Medication Administered: CLINDAMYCIN [PO], Dose: 450 mg PO. Medication Ordered: Clindamycin PO 450 mg (PO once now).
--- NOTE | 2016-07-22 07:16 | ED MED RECONCILIATION SUMMARY ---
Patient: SHARITA SWANN Medication Reconciliation Report [facility] VisitID: [id number] [address] [place] [address] 45y, F Registration Date/Time: 07/21/2016 Weight: 54.4 kg Height/Length: 62 in. BMI: 22.0 ALLERGIES: Amoxicillin, morphine, Penicillin, Sulfa Antibiotics The patient's Home Medications are listed below: NONE. The source(s) of the original Home Medication information: patient The following Medications were given to the patient in the Emergency Department: Clindamycin [PO] PO 450 mg, administered: 07/21/2016 12:45:00 AM The following Medications were prescribed to the patient: Clindamycin every 8 hours for 7 days. No refill.(450 mg PO. Disp suff quant. substitution allowed.) -- Seun Lee Dr.
--- NOTE | 2016-07-22 07:16 | ED MAR SUMMARY ---
..... Medication Administration Record [facility] [address] [place] [address] Patient: SHARITA SWANN Visit ID: [id number] 45y, F Weight: 54.4 kg Height/Length: 62 in BMI: 22 ALLERGIES: morphine, Penicillin, Amoxicillin, Sulfa Antibiotics Given 00:45 07/21/2016 Eloina Wiley, Medication Administered: CLINDAMYCIN [PO], Dose: 450 mg PO. Medication Ordered: Clindamycin PO 450 mg (PO once now).
== END 2016-07-21 00:45 | disposition home or self-care (01) ==
LOC: ED SRH 00:10
DX: K02.9 Dental caries, unspecified (principal); G50.1 Atypical facial pain; F17.210 Nicotine dependence, cigarettes, uncomplicated; J45.909 Unspecified asthma, uncomplicated; Z88.2 Allergy status to sulfonamides; Z88.0 Allergy status to penicillin; Z88.5 Allergy status to narcotic agent

== ENCOUNTER 2016-09-07 15:16 | Emergency (ER) | payer OTHER ==
--- NOTE | 2016-09-07 16:08 | DIAGNOSTIC IMAGING REPORT ---
PROCEDURE: XR CHEST 2 VIEW INDICATION: CHEST PAIN TECHNIQUE: PA and lateral view. COMPARISON: Chest x-ray 07/16/2015. FINDINGS: Lungs are clear. Cardiovascular structures are normal. Bony thorax is unremarkable. No significant interval change. IMPRESSION: 1. Negative chest.
--- NOTE | 2016-09-07 18:27 | ED CLINICAL REPORT ---
Clinical Report - Physicians/Mid Levels [facility] [address] [place] [address] 09/07/2016 15:17 Patient: SHARITA SWANN Time Seen: 15:32. Arrived- By ambulance. Historian- patient and EMS personnel. HISTORY OF PRESENT ILLNESS Chief Complaint: CHEST PAIN ANXIETY. This started yesterday and is still present but is better now. It was gradual in onset and has been waxing/waning. At its maximum, severity described as moderate. When seen in the E.D., severity described as mild. Modifying factors- worsened by movement. Relieved by rest. The patient has had fatigue. (pt states that she was having SOB yesterday and then the anxiety and chest pain started. pt states that she takes a puffer for shortness of breath but she has not picked up her refill. 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 Similar symptoms previously: Recent medical care: The patient was seen recently at this facility and another facility in the emergency department. Diagnosis: (Anxiety / Depression. Dental pain). REVIEW OF SYSTEMS No fever, sore throat, sinus drainage, nasal congestion or abdominal pain. No vomiting, diarrhea, black stools, bloody stools or difficulty with urination. No abnormal bleeding, skin rash, back pain, calf pain or headache. The patient has had a mild nonproductive cough. No blood tinged sputum or frankly bloody sputum. She has had difficulty breathing and nausea. She complains of moderate, sharp, pleuritic left-sided and central chest pain, currently moderate, described as intermittent and associated with nausea and shortness of breath. Has had similar symptoms of chest pain previously. No difficulty with ambulation. All systems otherwise negative, except as recorded above. PAST HISTORY PROBLEMS: Contusion. Conjunctivitis. Otitis Media. Dental Pain. Flank Pain. Sprain. Costochondritis. Constipation. Gestational diabetes mellitus. Nasal Fracture. Sinusitis. Bronchitis. URI. Lifestyle / Substance Problems. Lower Extremity Pain. Fall. Myofascial Strain. Dental Abscess. Abdominal Pain. Back Pain. Dental Caries. Nephrolithiasis. Diabetes Mellitus. Abscess. Asthma. SURGERIES: Cholecystectomy. Laparoscopy. Lithotripsy. Medications: Albuterol Sulfate Oral. Remeron Oral. PROzac Oral. Allergies: Amoxicillin. morphine. Penicillin. Sulfa. SOCIAL HISTORY Smoker- current status unknown. Occasional alcohol use. History of drug use: marijuana. Is a local resident. ADDITIONAL NOTES The nursing notes have been reviewed. PHYSICAL EXAM Vital Signs: 09/07/2016 15:22 BP: 145/88. HR: 103. RR: 21. O2 saturation: 100%. Temp: 98.2 F. Pain level now: 12/09. Appearance: Alert. Anxious. Patient in moderate distress. Eyes: Pupils equal, round and reactive to light. Eyes normal inspection. No scleral icterus or pale conjunctivae. ENT: Pharynx normal. No pharyngeal erythema or tonsillar exudate. The mucous membranes are not dry. Neck: Normal inspection. Neck supple. No JVD. CVS: Tachycardia. Heart sounds normal. Pulses normal. Respiratory: No respiratory distress. Breath sounds normal. No decreased air movement, rales, rhonchi, wheezes or prolonged expiration. Abdomen: No visible injury. Soft and nontender. No mass. Back: Normal inspection. Skin: Skin warm and dry. Normal skin color. No rash. Normal skin turgor. Extremities: Extremities exhibit normal ROM. No calf tenderness. No lower extremity edema. Neuro: Oriented X 3. No motor deficit. LABS, X-RAYS, AND EKG EKG: EKG time: (15:28). Narrow-complex tachycardia (ventricular rate 105). Sinus tachycardia. Normal CHRISTIANNE. Normal QRS complex. Normal axis. Non-specific ST segment / T wave abnormalities. DONE BY EMS. The study has been interpreted contemporaneously by me. The EKG appears to be a good tracing. EKG #2: EKG time: (18:23). Normal sinus rhythm. Rate: 80. Normal P waves. Normal CHRISTIANNE. Normal QRS complex. Normal axis. Non-specific ST segment / T wave abnormalities. Non-specific T wave flattening in lead III, aVL and V2. The study has been interpreted contemporaneously by me. The EKG appears to be a good tracing. Rhythm Strip #1: Sinus tachycardia (ventricular rate 100). Regular rhythm. Narrow QRS complexes. No ectopy. Non-specific ST segment / T-wave abnormalities. Chest X-ray: No acute disease. Normal lung markings present. Normal heart size. Mediastinum normal. Great vessels normal. No infiltrate. Views: PA and lateral. Technique: good. The X-rays were interpreted contemporaneously by me. A comparison with prior films reveals that the findings are unchanged. Laboratory Tests: CBC w Diff: (NIGEL: 09/07/2016 15:40) ( [facility] 09/07/2016 15:58) Final results Test Result Flag Units (Reference) WHITE BLOOD COUNT 8.9 K/uL (4.5-11.5) RED BLOOD COUNT 4.40 M/uL (4.00-5.20) HEMOGLOBIN 15.5 gm/dL (12.0-16.0) HEMATOCRIT 44.8 % (36.0-46.0) MEAN CELL VOLUME 102 H fL (80-100) MEAN CORPUSCULAR HGB 35 H pg (26-34) MEAN CORPUSCULAR HGB CONC 35 g/dL (31-37) RED CELL DISTRIBUTION WIDTH 12.8 % (11.6-14.8) PLATELET COUNT 348 K/uL (150-400) NEUTROPHIL % 72.6 % (50-75) LYMPH % 18.3 L % (25-40) MONO % 7.2 % (3-14) EOSINOPHIL % 1.6 % (0-4) BASOPHIL % 0.3 % (0-2) [id number]: (NIGEL: 09/07/2016 15:40) ( [facility] [place] 09/07/2016 16:10) Final results Test Result Flag Units (Reference) D-DIMER QUANTITATIVE < 0.27 L ug/mLFEU (0.27-0.52) The primary value of this quantitative assay relates toits negative predictive value (i.e. exclusion) of pulmonaryembolism/deep vein thrombosis/DIC.Elevated levels of d-dimer may also occur with:, age, cancer, inflammation, liver disease,post-op, infection, hematoma, coronary disease, peripheralarteriopathy, bleeding disorders and thrombolytic treatment.Results should be correlated with other clinical andradiological data.Testing Methodology: Latex Immunoassay CMP: (NIGEL: 09/07/2016 15:40) ( MsgRcvd 09/07/2016 16:56) Final results Test Result Flag Units (Reference) GLUCOSE 99 mg/dL (70-110) BUN 26 H mg/dL (7-18) CREATININE 0.9 mg/dL (0.6-1.3) Estimated GFR >60 mL/min Estimated GFR- >60 mL/min Note: Persistent reduction over 3 months in eGFR<60 mL/min/1.73 m2 defines CKD. Patients with eGFR values>=60 mL/min/1.73 m2 may also have CKD if evidence ofpersistent proteinuria. Additional information may be foundat [email or web address]. SODIUM 138 mmol/L (136-145) POTASSIUM 2.9 *L mmol/L (3.5-5.1) CRITICAL RESULTS CALLEDCalled to [facility] 09/07/16 2110Were 2 patient identifiers used? YWas the result read back? Y CHLORIDE 102 mmol/L (98-107) CARBON DIOXIDE 15 L mmol/L (21-32) CALCIUM 8.8 mg/dL (8.5-10.1) TOTAL PROTEIN 7.9 g/dL (6.4-8.2) ALBUMIN 3.9 g/dL (3.3-5.0) BILIRUBIN, TOTAL 0.4 mg/dL (0.0-1.0) ALKALINE PHOSPHATASE 87 U/L (46-116) AST (SGOT) 27 U/L (15-37) ALT (SGPT) 32 U/L (12-78) TROPONIN I <0.05 ng/mL (0.00-1.5) TROPONIN REFERENCE RANGE:<0.1 NEGATIVE0.1-1.5 INDETERMINANT>1.5 POSITIVE MAGNESIUM 2.4 mg/dL (1.8-2.4) . Pulse Oximetry: 09/07/2016 15:22 O2 saturation: 100%. (FIO2 - room air). Interpretation: normal. PROGRESS AND PROCEDURES Course of Care: Haldol 3 mg IVP given. Normal Saline 1 liter IVPB given. Ibuprofen 600 mg PO given. Benadryl 50 mg IVP given. Zofran 4 mg ODT PO given. Normal CXR, and serum markers despite prolonged symptoms. Pain is mostly reproducible. D-dimer neg. ECG with mild sinus tach and Pt admits that these are her index anxiety / panic symptoms. Labs c/w hyperventilation 18:25 09/07/16. Patient is stable. Physical exam findings are improved. Symptoms much better. Patient/family counseled. Old medical records ordered. (6 visits to area ED's in past 12 months ([facility] x 5, [facility] x 1)). Disposition: Discharged in stable condition. CLINICAL IMPRESSION Atypical chest pain .12 lead EKG performed. Essential hypertension. Anxiety reaction with hyperventilation. Chronic substance abuse- tobacco (cigarettes), marijuana with anxiety. Hypokalemia INSTRUCTIONS Drink plenty of fluids. Do not smoke. Seek medical help to quit smoking. Warnings: Further evaluation is necessary in order to recheck abnormal lab, obtain test results, conduct further tests and assess the possibility of serious illness. It is very important to follow up with a physician. GENERAL WARNINGS: Return or contact your physician immediately if your condition worsens or changes unexpectedly, if not improving as expected, or if other problems arise. Follow-up: Follow up with your doctor tomorrow. (Electronically signed by Pipo Vargas DO 09/07/2016 21:21)
--- NOTE | 2016-09-07 18:27 | ED ORDER SUMMARY ---
..... 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 per protocol) (15:45 KKnebel R.N.) Urine Urgent (15:34 09/07/2016 KKnebel R.N. per protocol) (Ack 15:35 KHoerner) (19:58 KKnebel R.N.) UA-Culture if indicated Urgent (15:34 09/07/2016 KKnebel R.N. per protocol) (Ack 15:35 KHoerner) (19:58 KKnebel R.N.) BMP Urgent (15:34 09/07/2016 KKnebel R.N. per protocol) (Ack 15:35 KHoerner) (15:45 KKnebel R.N.) CMP Urgent (15:34 09/07/2016 KKnebel R.N. per protocol) (Ack 15:35 KHoerner) (15:45 KKnebel R.N.) CBC w Diff Urgent (15:34 09/07/2016 KKnebel R.N. per protocol) (Ack 15:35 KHoerner) (15:45 KKnebel R.N.) EKG - ER Stat (15:34 09/07/2016 KKnebel R.N. per protocol) (15:34 Kathynandez) Troponin-I Urgent (15:38 09/07/2016 PHutchinson DO) (Ack 15:38 KHoerner) (15:45 KKnebel R.N.) D-Dimer Urgent (15:38 09/07/2016 PHutchinson DO) (Ack 15:38 KHoerner) (15:45 KKnebel R.N.) Chest 2V Urgent (15:43 09/07/2016 PHutchinson DO) (Ack 15:45 KHoerner) (15:53 KHoerner) EKG - ER Repeat Stat (18:12 09/07/2016 [facility]) (18:23 Ondina) MEDICATION ORDERS: Ibuprofen PO 600 mg (NOW) (15:43 09/07/2016 [facility]) (15:48 KKnebel R.N.) Potassium Chloride PO 40 meq (NOW) (16:13 09/07/2016 [facility]) (16:20 KKnebel R.N.) IV FLUIDS: IV Saline Lock (15:34 09/07/2016 KKnebel R.N. per protocol) (15:34 KKnebel R.N.) IV NS with Normal Saline 1 Liter: initial bolus 1000 mL (1000 mL/hr), then 500 mL/hr for X2 (NOW) (15:38 09/07/2016 [facility]) (15:57 KKnebel R.N.) Zofran IV 4 mg (NOW) (15:43 09/07/2016 [facility]) (15:57 KKnebel R.N.) Haldol IV 3 mg (HIGH ALERT MEDICATION, NOW) (16:22 09/07/2016 [facility]) (Ack 17:53 KKnebel R.N.) (17:58 KKnebel R.N.) Benadryl IV 50 mg (NOW) (16:22 09/07/2016 [facility]) (Ack 17:53 KKnebel R.N.) (17:58 KKnebel R.N.) ORDER SHEET NOTES: [Electronically signed by Kimberly Rhaman R.N. (19:58 09/07/2016)] [Electronically signed by Pipo Vargas DO (21:21 09/07/2016)] [Electronically locked/signed by Kimberly Rahman R.N. (19:58 09/07/2016)]
--- NOTE | 2016-09-07 18:27 | ED NURSING NOTES ---
Clinical Report - Nurses [facility] [place] [address] [address] 09/07/2016 15:17 Patient: SHARITA SWANN TRIAGE Triage time 15:Sep 07 2017 Sep 07 2016. Acuity: LEVEL 3. Chief Complaint: ANXIETY. Alert. No acute distress. SEE COMA SCORE: See Coma Scale: 15- eyes open spontaneously (4); best verbal response- oriented x 4 (5); best motor response- obeys commands (6). --15:31 Kimberly Rahman R.N. 15:22 09/07/16. BP: 145/88. HR: 103. RR: 21. O2 saturation: 100%. Temp: 98.2 F. Pain level now: 12/09. --15:31 Kimberly Rahman R.N. Weight: 54.4 kg stated. Height/Length: 62 inches Per Patient. BMI: 22. --15:29 Kimberly Rahman R.N. Medications PROzac Oral. --15:25 Kimberly Rahman R.N. Remeron Oral. --15:25 Kimberly Rahman R.N. Albuterol Sulfate Oral. --15:25 Kimberly Rahman R.N. Allergies morphine. --15:26 Kimberly Rahman R.N. Amoxicillin. --15:26 Kimberly Rahman R.N. Penicillin. --15:26 Kimberly Rahman R.N. Sulfa. --15:26 Kimberly Rahman R.N. History Arrived by EMS. Historian: patient. Onset: yesterday. ( pt states that she was having SOB yesterday and then the anxiety and chest pain started. pt states that she takes a puffer for shortness of breath but she has not picked up her refill.). She describes feelings of depression and has had sleeping difficulties. ( leg pain). 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 PAST MEDICAL HX: Immunizations: up-to-date. Uses depo injections. Denies current . SOCIAL HX: Current every day heavy tobacco smoker (cigarette)- less than 1 pack per day. Occasional alcohol use. History of drug use: marijuana. Recently used drugs days ago. No infectious disease exposure. SELF HARM ASSESSMENT: A self harm assessment was performed. The patient answered "no" to the question "Do you have thoughts of harming or killing yourself?". FALL RISK ASSESSMENT: Fall risk assessment completed. No fall risk identified. NUTRITIONAL RISK ASSESSMENT: The nutritional risk assessment revealed no deficiencies. FUNCTIONAL ASSESSMENT: Functional assessment: no impairments noted. LEARNING NEEDS ASSESSMENT: The learning needs assessment revealed no barriers. ABUSE ASSESSMENT: Abuse assessment: The patient was asked "Do you feel safe in your home?". SKIN INTEGRITY ASSESSMENT: Skin integrity risk assessment completed. No skin integrity risk identified. --15:31 Kimberly Rahman R.N. PROBLEMS: Contusion. Conjunctivitis. Otitis Media. Dental Pain. Flank Pain. Sprain. Costochondritis. Constipation. Gestational diabetes mellitus. Nasal Fracture. Sinusitis. Bronchitis. URI. Lifestyle / Substance Problems. Lower Extremity Pain. Fall. Myofascial Strain. Dental Abscess. Abdominal Pain. Back Pain. Dental Caries. Acute Pain. Nephrolithiasis. Diabetes Mellitus. Immunizations. . Tetanus Status. Abscess. Asthma. LNMP - Last Normal Menstrual Period. --15:27 Kimberly Rahman R.N. ADDITIONAL SURGERIES: Cholecystectomy. Laparoscopy. Lithotripsy. --15:27 Kimberly Rahman R.N. Interventions ID band on patient. To room. --15:31 Kimberly Rahman R.N. PHYSICAL ASSESSMENT To room via stretcher. GENERAL / NEURO / PSYCH: Alert. Oriented X 4. Appears anxious. Speech within normal limits. RESPIRATORY: Respirations not labored. CVS: Capillary refill less than 2 seconds. GI / : Abdomen soft and nontender. SKIN: Skin is warm and dry. --15:32 Kimberly Rahman R.N. NURSING PROGRESS NOTES geriatrician, pulse oximeter and NIBP monitor placed on patient; cloth washer operator- Lead II; monitor alarms on. Finger stick glucose: 94 mg/dL; performed by nurse. Patient gowned. Head of bed elevated. Patient identifiers checked. Call light placed in reach. Side rails up x 2. Bed placed in lowest position. Brakes of bed on. --15:33 Kimberly Rahman R.N. 15:34 09/07/2016 Site #1 started prior to arrival by EMS via IV in the right antecubital space with an 20g angiocath. Saline lock flushed with 10 mL saline. --15:34 Kimberly Rahman R.N. 15:48 09/07/2016 Ibuprofen PO Tablets 600 mg given. Allergies verified and confirmed 5 rights. --15:48 Kimberly Rahman R.N. Patient transported to radiology by stretcher with tech. (15:48 Sep 07 2016). --15:48 Kimberly Rahman R.N. EKG time: (1528). EKG was ordered, performed by a tech and shown to the ED physician. --15:51 Janel Craig 15:57 09/07/2016 Zofran (Ondansetron HCl) IVP 4 mg given over 2 minute(s) via site #1. Allergies verified and confirmed 5 rights. IV patency established. IV site checked: no pain, redness, or swelling. IV flushed thoroughly pre- and post-medication administration. IVP given by RN. --15:57 Kimberly Rahman R.N. 15:57 09/07/2016 Started bag #1 1000 mL IV Fluids IV NS (Saline); bolus of 1000 mL over 1 hour(s) via site #1. Allergies verified and confirmed 5 rights. IV patency established. IV site checked: no pain, redness, or swelling. IV flushed thoroughly pre- and post-medication administration. --15:57 Kimberly Rahman R.N. Critical value relayed to ED by Jose. Critical value received by kimberly ERICKSON. K: 2.9. Critical value read back. Provider notifed of critical value (Dr. Vargas). Orders were not received. No action is required. --16:14 Kimberly Rahman R.N. 16:20 09/07/2016 Potassium Chloride (Potassium Chloride ER) PO Tablets 40 meq given. Allergies verified and confirmed 5 rights. --16:20 Kimberly Rahman R.N. 16:20 09/07/16. BP: 128/87. HR: 96. RR: 14. O2 saturation: 98%. Pain level now: 11/08. --16:21 Kimberly Rahman R.N. The patient is calm and resting quietly. GENERAL / NEURO / PSYCH: The patient reports headache. The patient reports anxiety. Patient appears calm and cooperative. RESPIRATORY: No respiratory distress. SKIN: Skin is warm and dry. --16:21 Kimberly Rahman R.N. 17:58 09/07/2016 HALDOL (Haloperidol Lactate) IVP 3 mg given. via site #1. Allergies verified, confirmed 5 rights and sedative warning given to the patient. IV patency established. IV site checked: no pain, redness, or swelling. IV flushed thoroughly pre- and post-medication administration. IVP given by RN. --17:58 Kimberly Rahman R.N. 17:58 09/07/2016 Benadryl (DiphenhydrAMINE HCl) IVP 50 mg given over 2 minute(s) via site #1. Allergies verified, confirmed 5 rights and sedative warning given to the patient. IV patency established. IV site checked: no pain, redness, or swelling. IV flushed thoroughly pre- and post-medication administration. IVP given by RN. --17:58 Kimberly Rahman R.N. Overall patient status is the same- she states feels better. GENERAL / NEURO / PSYCH: Alert. Oriented X 4. Patient appears calm and cooperative. RESPIRATORY: No respiratory distress. SKIN: Skin is warm and dry. --18:00 Kimberly Rahman R.N. 17:58 09/07/16. BP: 122/77. HR: 110. RR: 24. O2 saturation: 95%. Pain level now: 08/08. --18:00 Kimberly Rahman R.N. EKG time: (1822). EKG was ordered, performed by a tech and shown to the ED physician. --18:34 Janel Craig. DISPOSITION / DISCHARGE 19:35 09/07/2016 Site #1 removed upon discharge. Bandage applied. --19:35 Kimberly Rahman R.N. Departure time: 19:42 Sep 07 2016. Condition at departure: improved. No learning barriers present. Discharge instructions provided and reviewed with the patient. Reviewed referral to a primary care physician for followup. Patient verbalized understanding. Written instructions provided in Thai. The patient was discharged home. She left the Emergency Department ambulatory and via (pt calling for ride home). FALL RISK ASSESSMENT: Fall risk assessment completed. No fall risk identified. --19:42 Kimberly Rahman R.N. 19:35 09/07/16. BP: 115/76. HR: 86. RR: 20. O2 saturation: 98%. Pain level now: 07/09. --19:42 Kimberly Rahman R.N. Locked/Released at 09/07/2016 19:58 by Kimberly Rahman R.N.
--- NOTE | 2016-09-07 18:27 | ED ORDER SUMMARY ---
..... 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 per protocol) (15:45 KKnebel R.N.) Urine Urgent (15:34 09/07/2016 KKnebel R.N. per protocol) (Ack 15:35 KHoerner) (19:58 KKnebel R.N.) UA-Culture if indicated Urgent (15:34 09/07/2016 KKnebel R.N. per protocol) (Ack 15:35 KHoerner) (19:58 KKnebel R.N.) BMP Urgent (15:34 09/07/2016 KKnebel R.N. per protocol) (Ack 15:35 KHoerner) (15:45 KKnebel R.N.) CMP Urgent (15:34 09/07/2016 KKnebel R.N. per protocol) (Ack 15:35 KHoerner) (15:45 KKnebel R.N.) CBC w Diff Urgent (15:34 09/07/2016 KKnebel R.N. per protocol) (Ack 15:35 KHoerner) (15:45 KKnebel R.N.) EKG - ER Stat (15:34 09/07/2016 KKnebel R.N. per protocol) (15:34 Kathynandez) Troponin-I Urgent (15:38 09/07/2016 PHutchinson DO) (Ack 15:38 KHoerner) (15:45 KKnebel R.N.) D-Dimer Urgent (15:38 09/07/2016 PHutchinson DO) (Ack 15:38 KHoerner) (15:45 KKnebel R.N.) Chest 2V Urgent (15:43 09/07/2016 PHutchinson DO) (Ack 15:45 KHoerner) (15:53 KHoerner) EKG - ER Repeat Stat (18:12 09/07/2016 [facility]) (18:23 Ondina) MEDICATION ORDERS: Ibuprofen PO 600 mg (NOW) (15:43 09/07/2016 [facility]) (15:48 KKnebel R.N.) Potassium Chloride PO 40 meq (NOW) (16:13 09/07/2016 [facility]) (16:20 KKnebel R.N.) IV FLUIDS: IV Saline Lock (15:34 09/07/2016 KKnebel R.N. per protocol) (15:34 KKnebel R.N.) IV NS with Normal Saline 1 Liter: initial bolus 1000 mL (1000 mL/hr), then 500 mL/hr for X2 (NOW) (15:38 09/07/2016 [facility]) (15:57 KKnebel R.N.) Zofran IV 4 mg (NOW) (15:43 09/07/2016 [facility]) (15:57 KKnebel R.N.) Haldol IV 3 mg (HIGH ALERT MEDICATION, NOW) (16:22 09/07/2016 [facility]) (Ack 17:53 KKnebel R.N.) (17:58 KKnebel R.N.) Benadryl IV 50 mg (NOW) (16:22 09/07/2016 [facility]) (Ack 17:53 KKnebel R.N.) (17:58 KKnebel R.N.) ORDER SHEET NOTES: [Electronically signed by Kimberly Rahman R.N. (19:58 09/07/2016)] [Electronically signed by Pipo Vargas DO (21:21 09/07/2016)] [Electronically locked/signed by Kimberly Rahman R.N. (19:58 09/07/2016)]
--- NOTE | 2016-09-07 18:27 | ED NURSING NOTES ---
Clinical Report - Nurses [facility] [place] [address] 09/07/2016 15:17 Patient: SHARITA SWANN TRIAGE Triage time 15:Sep 07 2017 Sep 07 2016. Acuity: LEVEL 3. Chief Complaint: ANXIETY. Alert. No acute distress. SEE COMA SCORE: See Coma Scale: 15- eyes open spontaneously (4); best verbal response- oriented x 4 (5); best motor response- obeys commands (6). --15:31 Kimberly Rahman R.N. 15:22 09/07/16. BP: 145/88. HR: 103. RR: 21. O2 saturation: 100%. Temp: 98.2 F. Pain level now: 12/09. --15:31 Kimberly Rahman R.N. Weight: 54.4 kg stated. Height/Length: 62 inches Per Patient. BMI: 22. --15:29 Kimberly Rahman R.N. Medications PROzac Oral. --15:25 Kimberly Rahman R.N. Remeron Oral. --15:25 Kimberly Rahman R.N. Albuterol Sulfate Oral. --15:25 Kimberly Rahman R.N. Allergies morphine. --15:26 Kimberly Rahman R.N. Amoxicillin. --15:26 Kimberly Rahman R.N. Penicillin. --15:26 Kimberly Rahman R.N. Sulfa. --15:26 Kimberly Rahman R.N. History Arrived by EMS. Historian: patient. Onset: yesterday. ( pt states that she was having SOB yesterday and then the anxiety and chest pain started. pt states that she takes a puffer for shortness of breath but she has not picked up her refill.). She describes feelings of depression and has had sleeping difficulties. ( leg pain). 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 PAST MEDICAL HX: Immunizations: up-to-date. Uses depo injections. Denies current . SOCIAL HX: Current every day heavy tobacco smoker (cigarette)- less than 1 pack per day. Occasional alcohol use. History of drug use: marijuana. Recently used drugs days ago. No infectious disease exposure. SELF HARM ASSESSMENT: A self harm assessment was performed. The patient answered "no" to the question "Do you have thoughts of harming or killing yourself?". FALL RISK ASSESSMENT: Fall risk assessment completed. No fall risk identified. NUTRITIONAL RISK ASSESSMENT: The nutritional risk assessment revealed no deficiencies. FUNCTIONAL ASSESSMENT: Functional assessment: no impairments noted. LEARNING NEEDS ASSESSMENT: The learning needs assessment revealed no barriers. ABUSE ASSESSMENT: Abuse assessment: The patient was asked "Do you feel safe in your home?". SKIN INTEGRITY ASSESSMENT: Skin integrity risk assessment completed. No skin integrity risk identified. --15:31 Kimberly Rahman R.N. PROBLEMS: Contusion. Conjunctivitis. Otitis Media. Dental Pain. Flank Pain. Sprain. Costochondritis. Constipation. Gestational diabetes mellitus. Nasal Fracture. Sinusitis. Bronchitis. URI. Lifestyle / Substance Problems. Lower Extremity Pain. Fall. Myofascial Strain. Dental Abscess. Abdominal Pain. Back Pain. Dental Caries. Acute Pain. Nephrolithiasis. Diabetes Mellitus. Immunizations. . Tetanus Status. Abscess. Asthma. LNMP - Last Normal Menstrual Period. --15:27 Kimberly Rahman R.N. ADDITIONAL SURGERIES: Cholecystectomy. Laparoscopy. Lithotripsy. --15:27 Kimberly Rahman R.N. Interventions ID band on patient. To room. --15:31 Kimberly Rahman R.N. PHYSICAL ASSESSMENT To room via stretcher. GENERAL / NEURO / PSYCH: Alert. Oriented X 4. Appears anxious. Speech within normal limits. RESPIRATORY: Respirations not labored. CVS: Capillary refill less than 2 seconds. GI / : Abdomen soft and nontender. SKIN: Skin is warm and dry. --15:32 Kimberly Rahman R.N. NURSING PROGRESS NOTES aluminum welder, pulse oximeter and NIBP monitor placed on patient; community artist- Lead II; monitor alarms on. Finger stick glucose: 94 mg/dL; performed by nurse. Patient gowned. Head of bed elevated. Patient identifiers checked. Call light placed in reach. Side rails up x 2. Bed placed in lowest position. Brakes of bed on. --15:33 Kimberly Rahman R.N. 15:34 09/07/2016 Site #1 started prior to arrival by EMS via IV in the right antecubital space with an 20g angiocath. Saline lock flushed with 10 mL saline. --15:34 Kimberly Rahman R.N. 15:48 09/07/2016 Ibuprofen PO Tablets 600 mg given. Allergies verified and confirmed 5 rights. --15:48 Kimberly Rahman R.N. Patient transported to radiology by stretcher with tech. (15:48 Sep 07 2016). --15:48 Kimberly Rahman R.N. EKG time: (1528). EKG was ordered, performed by a tech and shown to the ED physician. --15:51 Janel Craig 15:57 09/07/2016 Zofran (Ondansetron HCl) IVP 4 mg given over 2 minute(s) via site #1. Allergies verified and confirmed 5 rights. IV patency established. IV site checked: no pain, redness, or swelling. IV flushed thoroughly pre- and post-medication administration. IVP given by RN. --15:57 Kimberly Rahman R.N. 15:57 09/07/2016 Started bag #1 1000 mL IV Fluids IV NS (Saline); bolus of 1000 mL over 1 hour(s) via site #1. Allergies verified and confirmed 5 rights. IV patency established. IV site checked: no pain, redness, or swelling. IV flushed thoroughly pre- and post-medication administration. --15:57 Kimberly Rahman R.N. Critical value relayed to ED by Jose. Critical value received by kimberly ERICKSON. K: 2.9. Critical value read back. Provider notifed of critical value (Dr. Vargas). Orders were not received. No action is required. --16:14 Kimberly Rahman R.N. 16:20 09/07/2016 Potassium Chloride (Potassium Chloride ER) PO Tablets 40 meq given. Allergies verified and confirmed 5 rights. --16:20 Kimberly Rahman R.N. 16:20 09/07/16. BP: 128/87. HR: 96. RR: 14. O2 saturation: 98%. Pain level now: 11/08. --16:21 Kimberly Rahman R.N. The patient is calm and resting quietly. GENERAL / NEURO / PSYCH: The patient reports headache. The patient reports anxiety. Patient appears calm and cooperative. RESPIRATORY: No respiratory distress. SKIN: Skin is warm and dry. --16:21 Kimberly Rahman R.N. 17:58 09/07/2016 HALDOL (Haloperidol Lactate) IVP 3 mg given. via site #1. Allergies verified, confirmed 5 rights and sedative warning given to the patient. IV patency established. IV site checked: no pain, redness, or swelling. IV flushed thoroughly pre- and post-medication administration. IVP given by RN. --17:58 Kimberly Rahman R.N. 17:58 09/07/2016 Benadryl (DiphenhydrAMINE HCl) IVP 50 mg given over 2 minute(s) via site #1. Allergies verified, confirmed 5 rights and sedative warning given to the patient. IV patency established. IV site checked: no pain, redness, or swelling. IV flushed thoroughly pre- and post-medication administration. IVP given by RN. --17:58 Kimberly Rahman R.N. Overall patient status is the same- she states feels better. GENERAL / NEURO / PSYCH: Alert. Oriented X 4. Patient appears calm and cooperative. RESPIRATORY: No respiratory distress. SKIN: Skin is warm and dry. --18:00 Kimberly Rahman R.N. 17:58 09/07/16. BP: 122/77. HR: 110. RR: 24. O2 saturation: 95%. Pain level now: 08/08. --18:00 Kimberly Rahman R.N. EKG time: (1822). EKG was ordered, performed by a tech and shown to the ED physician. --18:34 Janel Craig. DISPOSITION / DISCHARGE 19:35 09/07/2016 Site #1 removed upon discharge. Bandage applied. --19:35 Kimberly Rahman R.N. Departure time: 19:42 Sep 07 2016. Condition at departure: improved. No learning barriers present. Discharge instructions provided and reviewed with the patient. Reviewed referral to a primary care physician for followup. Patient verbalized understanding. Written instructions provided in Spanish. The patient was discharged home. She left the Emergency Department ambulatory and via (pt calling for ride home). FALL RISK ASSESSMENT: Fall risk assessment completed. No fall risk identified. --19:42 Kimberly Rahman R.N. 19:35 09/07/16. BP: 115/76. HR: 86. RR: 20. O2 saturation: 98%. Pain level now: 07/09. --19:42 Kimberly Rahman R.N. Locked/Released at 09/07/2016 19:58 by Kimberly Rahman R.N.
--- NOTE | 2016-09-07 18:27 | ED CLINICAL REPORT ---
Clinical Report - Physicians/Mid Levels [facility] [address] [place] [address] 09/07/2016 15:17 Patient: SHARITA SWANN Time Seen: 15:32. Arrived- By ambulance. Historian- patient and EMS personnel. HISTORY OF PRESENT ILLNESS Chief Complaint: CHEST PAIN ANXIETY. This started yesterday and is still present but is better now. It was gradual in onset and has been waxing/waning. At its maximum, severity described as moderate. When seen in the E.D., severity described as mild. Modifying factors- worsened by movement. Relieved by rest. The patient has had fatigue. (pt states that she was having SOB yesterday and then the anxiety and chest pain started. pt states that she takes a puffer for shortness of breath but she has not picked up her refill. 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 Similar symptoms previously: Recent medical care: The patient was seen recently at this facility and another facility in the emergency department. Diagnosis: (Anxiety / Depression. Dental pain). REVIEW OF SYSTEMS No fever, sore throat, sinus drainage, nasal congestion or abdominal pain. No vomiting, diarrhea, black stools, bloody stools or difficulty with urination. No abnormal bleeding, skin rash, back pain, calf pain or headache. The patient has had a mild nonproductive cough. No blood tinged sputum or frankly bloody sputum. She has had difficulty breathing and nausea. She complains of moderate, sharp, pleuritic left-sided and central chest pain, currently moderate, described as intermittent and associated with nausea and shortness of breath. Has had similar symptoms of chest pain previously. No difficulty with ambulation. All systems otherwise negative, except as recorded above. PAST HISTORY PROBLEMS: Contusion. Conjunctivitis. Otitis Media. Dental Pain. Flank Pain. Sprain. Costochondritis. Constipation. Gestational diabetes mellitus. Nasal Fracture. Sinusitis. Bronchitis. URI. Lifestyle / Substance Problems. Lower Extremity Pain. Fall. Myofascial Strain. Dental Abscess. Abdominal Pain. Back Pain. Dental Caries. Nephrolithiasis. Diabetes Mellitus. Abscess. Asthma. SURGERIES: Cholecystectomy. Laparoscopy. Lithotripsy. Medications: Albuterol Sulfate Oral. Remeron Oral. PROzac Oral. Allergies: Amoxicillin. morphine. Penicillin. Sulfa. SOCIAL HISTORY Smoker- current status unknown. Occasional alcohol use. History of drug use: marijuana. Is a local resident. ADDITIONAL NOTES The nursing notes have been reviewed. PHYSICAL EXAM Vital Signs: 09/07/2016 15:22 BP: 145/88. HR: 103. RR: 21. O2 saturation: 100%. Temp: 98.2 F. Pain level now: 12/09. Appearance: Alert. Anxious. Patient in moderate distress. Eyes: Pupils equal, round and reactive to light. Eyes normal inspection. No scleral icterus or pale conjunctivae. ENT: Pharynx normal. No pharyngeal erythema or tonsillar exudate. The mucous membranes are not dry. Neck: Normal inspection. Neck supple. No JVD. CVS: Tachycardia. Heart sounds normal. Pulses normal. Respiratory: No respiratory distress. Breath sounds normal. No decreased air movement, rales, rhonchi, wheezes or prolonged expiration. Abdomen: No visible injury. Soft and nontender. No mass. Back: Normal inspection. Skin: Skin warm and dry. Normal skin color. No rash. Normal skin turgor. Extremities: Extremities exhibit normal ROM. No calf tenderness. No lower extremity edema. Neuro: Oriented X 3. No motor deficit. LABS, X-RAYS, AND EKG EKG: EKG time: (15:28). Narrow-complex tachycardia (ventricular rate 105). Sinus tachycardia. Normal CHRISTIANNE. Normal QRS complex. Normal axis. Non-specific ST segment / T wave abnormalities. DONE BY EMS. The study has been interpreted contemporaneously by me. The EKG appears to be a good tracing. EKG #2: EKG time: (18:23). Normal sinus rhythm. Rate: 80. Normal P waves. Normal CHRISTIANNE. Normal QRS complex. Normal axis. Non-specific ST segment / T wave abnormalities. Non-specific T wave flattening in lead III, aVL and V2. The study has been interpreted contemporaneously by me. The EKG appears to be a good tracing. Rhythm Strip #1: Sinus tachycardia (ventricular rate 100). Regular rhythm. Narrow QRS complexes. No ectopy. Non-specific ST segment / T-wave abnormalities. Chest X-ray: No acute disease. Normal lung markings present. Normal heart size. Mediastinum normal. Great vessels normal. No infiltrate. Views: PA and lateral. Technique: good. The X-rays were interpreted contemporaneously by me. A comparison with prior films reveals that the findings are unchanged. Laboratory Tests: CBC w Diff: (NIGEL: 09/07/2016 15:40) ( [facility] [place] 09/07/2016 15:58) Final results Test Result Flag Units (Reference) WHITE BLOOD COUNT 8.9 K/uL (4.5-11.5) RED BLOOD COUNT 4.40 M/uL (4.00-5.20) HEMOGLOBIN 15.5 gm/dL (12.0-16.0) HEMATOCRIT 44.8 % (36.0-46.0) MEAN CELL VOLUME 102 H fL (80-100) MEAN CORPUSCULAR HGB 35 H pg (26-34) MEAN CORPUSCULAR HGB CONC 35 g/dL (31-37) RED CELL DISTRIBUTION WIDTH 12.8 % (11.6-14.8) PLATELET COUNT 348 K/uL (150-400) NEUTROPHIL % 72.6 % (50-75) LYMPH % 18.3 L % (25-40) MONO % 7.2 % (3-14) EOSINOPHIL % 1.6 % (0-4) BASOPHIL % 0.3 % (0-2) [id number]: (NIGEL: 09/07/2016 15:40) ( [facility] [place] 09/07/2016 16:10) Final results Test Result Flag Units (Reference) D-DIMER QUANTITATIVE < 0.27 L ug/mLFEU (0.27-0.52) The primary value of this quantitative assay relates toits negative predictive value (i.e. exclusion) of pulmonaryembolism/deep vein thrombosis/DIC.Elevated levels of d-dimer may also occur with:, age, cancer, inflammation, liver disease,post-op, infection, hematoma, coronary disease, peripheralarteriopathy, bleeding disorders and thrombolytic treatment.Results should be correlated with other clinical andradiological data.Testing Methodology: Latex Immunoassay CMP: (NIGEL: 09/07/2016 15:40) ( [facility] 09/07/2016 16:56) Final results Test Result Flag Units (Reference) GLUCOSE 99 mg/dL (70-110) BUN 26 H mg/dL (7-18) CREATININE 0.9 mg/dL (0.6-1.3) Estimated GFR >60 mL/min Estimated GFR- >60 mL/min Note: Persistent reduction over 3 months in eGFR<60 mL/min/1.73 m2 defines CKD. Patients with eGFR values>=60 mL/min/1.73 m2 may also have CKD if evidence ofpersistent proteinuria. Additional information may be foundat [email or web address]. SODIUM 138 mmol/L (136-145) POTASSIUM 2.9 *L mmol/L (3.5-5.1) CRITICAL RESULTS CALLEDCalled to [facility] ED 09/07/16 [id number] 2 patient identifiers used? YWas the result read back? Y CHLORIDE 102 mmol/L (98-107) CARBON DIOXIDE 15 L mmol/L (21-32) CALCIUM 8.8 mg/dL (8.5-10.1) TOTAL PROTEIN 7.9 g/dL (6.4-8.2) ALBUMIN 3.9 g/dL (3.3-5.0) BILIRUBIN, TOTAL 0.4 mg/dL (0.0-1.0) ALKALINE PHOSPHATASE 87 U/L (46-116) AST (SGOT) 27 U/L (15-37) ALT (SGPT) 32 U/L (12-78) TROPONIN I <0.05 ng/mL (0.00-1.5) TROPONIN REFERENCE RANGE:<0.1 NEGATIVE0.1-1.5 INDETERMINANT>1.5 POSITIVE MAGNESIUM 2.4 mg/dL (1.8-2.4) . Pulse Oximetry: 09/07/2016 15:22 O2 saturation: 100%. (FIO2 - room air). Interpretation: normal. PROGRESS AND PROCEDURES Course of Care: Haldol 3 mg IVP given. Normal Saline 1 liter IVPB given. Ibuprofen 600 mg PO given. Benadryl 50 mg IVP given. Zofran 4 mg ODT PO given. Normal CXR, and serum markers despite prolonged symptoms. Pain is mostly reproducible. D-dimer neg. ECG with mild sinus tach and Pt admits that these are her index anxiety / panic symptoms. Labs c/w hyperventilation 18:25 09/07/16. Patient is stable. Physical exam findings are improved. Symptoms much better. Patient/family counseled. Old medical records ordered. (6 visits to area ED's in past 12 months ([facility] x 5, [facility] x 1)). Disposition: Discharged in stable condition. CLINICAL IMPRESSION Atypical chest pain .12 lead EKG performed. Essential hypertension. Anxiety reaction with hyperventilation. Chronic substance abuse- tobacco (cigarettes), marijuana with anxiety. Hypokalemia INSTRUCTIONS Drink plenty of fluids. Do not smoke. Seek medical help to quit smoking. Warnings: Further evaluation is necessary in order to recheck abnormal lab, obtain test results, conduct further tests and assess the possibility of serious illness. It is very important to follow up with a physician. GENERAL WARNINGS: Return or contact your physician immediately if your condition worsens or changes unexpectedly, if not improving as expected, or if other problems arise. Follow-up: Follow up with your doctor tomorrow. (Electronically signed by Pipo Vargas DO 09/07/2016 21:21)
--- NOTE | 2016-09-07 21:21 | ED MAR SUMMARY ---
..... Medication Administration Record [facility] [address] [place] [address] Patient: SHARITA SWANN Visit ID: [id number] 45y, F Weight: 54.4 kg Height/Length: 62 in BMI: 22 ALLERGIES: Sulfa, Penicillin, Amoxicillin, morphine Given 15:48 09/07/2016 Kimberly Rahman R.N. Medication Administered: IBUPROFEN [PO], Dose: 600 mg Tablets PO. Medication Ordered: Ibuprofen PO 600 mg (NOW). Given 15:57 09/07/2016 Kimberly Rahman R.N. Medication Administered: ZOFRAN [IVP] (ONDANSETRON HCL), Dose: 4 mg IVP over 2 minute(s), Site: #1 right AC. Medication Ordered: Zofran IV 4 mg (NOW). Start 15:57 09/07/2016 Kimberly Rahman R.N. Medication Administered: IV NS (SALINE), Dose: IV Fluids, Bolus: 1000 mL over 1 hour(s), Dispensed: 1000 mL bag, Site: #1 right AC. Medication Ordered: IV NS with Normal Saline 1 Liter: initial bolus 1000 mL (1000 mL/hr), then 500 mL/hr for X2 (NOW). Given 16:20 09/07/2016 Kimberly Rahman R.N. Medication Administered: POTASSIUM CHLORIDE [PO] (POTASSIUM CHLORIDE ER), Dose: 40 meq Tablets PO. Medication Ordered: Potassium Chloride PO 40 meq (NOW). Given 17:58 09/07/2016 Kimberly Rahman R.N. Medication Administered: HALDOL [IVP] (HALOPERIDOL LACTATE), Dose: 3 mg IVP, Site: #1 right AC. Medication Ordered: Haldol IV 3 mg (HIGH ALERT MEDICATION, NOW). Given 17:58 09/07/2016 Kimberly Rahman R.N. Medication Administered: BENADRYL [IVP] (DIPHENHYDRAMINE HCL), Dose: 50 mg IVP over 2 minute(s), Site: #1 right AC. Medication Ordered: Benadryl IV 50 mg (NOW).
--- NOTE | 2016-09-07 21:21 | ED MAR SUMMARY ---
..... Medication Administration Record [facility] [address] [place] [address] Patient: SHARITA SWANN Visit ID: [id number] 45y, F Weight: 54.4 kg Height/Length: 62 in BMI: 22 ALLERGIES: Sulfa, Penicillin, Amoxicillin, morphine Given 15:48 09/07/2016 Kimberly Rahman R.N. Medication Administered: IBUPROFEN [PO], Dose: 600 mg Tablets PO. Medication Ordered: Ibuprofen PO 600 mg (NOW). Given 15:57 09/07/2016 Kimberly Rahman R.N. Medication Administered: ZOFRAN [IVP] (ONDANSETRON HCL), Dose: 4 mg IVP over 2 minute(s), Site: #1 right AC. Medication Ordered: Zofran IV 4 mg (NOW). Start 15:57 09/07/2016 Kimberly Rahman R.N. Medication Administered: IV NS (SALINE), Dose: IV Fluids, Bolus: 1000 mL over 1 hour(s), Dispensed: 1000 mL bag, Site: #1 right AC. Medication Ordered: IV NS with Normal Saline 1 Liter: initial bolus 1000 mL (1000 mL/hr), then 500 mL/hr for X2 (NOW). Given 16:20 09/07/2016 Kimberly Rahman R.N. Medication Administered: POTASSIUM CHLORIDE [PO] (POTASSIUM CHLORIDE ER), Dose: 40 meq Tablets PO. Medication Ordered: Potassium Chloride PO 40 meq (NOW). Given 17:58 09/07/2016 Kimberly Rahman R.N. Medication Administered: HALDOL [IVP] (HALOPERIDOL LACTATE), Dose: 3 mg IVP, Site: #1 right AC. Medication Ordered: Haldol IV 3 mg (HIGH ALERT MEDICATION, NOW). Given 17:58 09/07/2016 Kimberly Rahman R.N. Medication Administered: BENADRYL [IVP] (DIPHENHYDRAMINE HCL), Dose: 50 mg IVP over 2 minute(s), Site: #1 right AC. Medication Ordered: Benadryl IV 50 mg (NOW).
--- NOTE | 2016-09-07 21:21 | ED MED RECONCILIATION SUMMARY ---
Patient: SHARITA SWANN Medication Reconciliation Report [facility] VisitID: [id number] [address] [place] [address] 45y, F Registration Date/Time: 09/07/2016 Weight: 54.4 kg Height/Length: 62 in. BMI: 22.0 ALLERGIES: Amoxicillin, morphine, Penicillin, Sulfa The patient's Home Medications are listed below: THE FOLLOWING MEDICATIONS NEED TO BE RECONCILED: Albuterol Sulfate Oral PROzac Oral Remeron Oral The source(s) of the original Home Medication information: Not obtained. The following Medications were given to the patient in the Emergency Department: Ibuprofen [PO] PO 600 mg, administered: 09/07/2016 3:48:00 PM Zofran [IVP] IVP 4 mg, administered: 09/07/2016 3:57:00 PM IV NS IV Fluids bolus 1000 mL over 1 hour(s), administered: 09/07/2016 3:57:00 PM Potassium Chloride [PO] PO 40 meq, administered: 09/07/2016 4:20:00 PM HALDOL [IVP] IVP 3 mg, administered: 09/07/2016 5:58:00 PM Benadryl [IVP] IVP 50 mg, administered: 09/07/2016 5:58:00 PM The following Medications were prescribed to the patient: None.
--- NOTE | 2016-09-07 21:21 | ED MED RECONCILIATION SUMMARY ---
Patient: SHARITA SWANN Medication Reconciliation Report [facility] VisitID: [id number] [address] [place] [address] 45y, F Registration Date/Time: 09/07/2016 Weight: 54.4 kg Height/Length: 62 in. BMI: 22.0 ALLERGIES: Amoxicillin, morphine, Penicillin, Sulfa The patient's Home Medications are listed below: THE FOLLOWING MEDICATIONS NEED TO BE RECONCILED: Albuterol Sulfate Oral PROzac Oral Remeron Oral The source(s) of the original Home Medication information: Not obtained. The following Medications were given to the patient in the Emergency Department: Ibuprofen [PO] PO 600 mg, administered: 09/07/2016 3:48:00 PM Zofran [IVP] IVP 4 mg, administered: 09/07/2016 3:57:00 PM IV NS IV Fluids bolus 1000 mL over 1 hour(s), administered: 09/07/2016 3:57:00 PM Potassium Chloride [PO] PO 40 meq, administered: 09/07/2016 4:20:00 PM HALDOL [IVP] IVP 3 mg, administered: 09/07/2016 5:58:00 PM Benadryl [IVP] IVP 50 mg, administered: 09/07/2016 5:58:00 PM The following Medications were prescribed to the patient: None.
--- NOTE | 2016-09-07 21:21 | ED DISCHARGE INSTRUCTIONS ---
Patient: SHARITA SWANN General Instructions [facility] VisitID: [id number] [address] [place] [address] 45y, F Registration Date/Time: 09/07/2016 Atypical chest pain .12 lead EKG performed. Essential hypertension. Anxiety reaction with hyperventilation. Chronic substance abuse- tobacco (cigarettes), marijuana with anxiety. Hypokalemia INSTRUCTIONS Drink plenty of fluids. Do not smoke. Seek medical help to quit smoking. Warnings: Further evaluation is necessary in order to recheck abnormal lab, obtain test results, conduct further tests and assess the possibility of serious illness. It is very important to follow up with a physician. GENERAL WARNINGS: Return or contact your physician immediately if your condition worsens or changes unexpectedly, if not improving as expected, or if other problems arise. Follow-up: Follow up with your doctor tomorrow. ADDITIONAL INFORMATION High Blood Pressure -- To Be Confirmed [No Tx] Your blood pressure was higher today than normal. Sometimes anxiety or pain can cause a temporary rise in blood pressure that later returns to normal. If your blood pressure is high on one measurement, this does not mean that you have hypertension (a chronic illness). However, you must have your blood pressure measured again within the next few days to find out if its still high. A normal blood pressure is 120/80 or less. The first (top) number is the "systolic" pressure. The second (bottom) number is the "diastolic" pressure. Hypertension exists when either the top number is 140 or higher, OR the bottom number is 90 or higher on repeated measurements. Blood pressure in the range of 120-140 (systolic) or 80-89 (diastolic) is considered "pre-hypertension". This means your are at risk for getting hypertension. You should have regular blood pressure checks to be sure your blood pressure is not rising. Home Care: Measure your blood pressure on 3 different days and write down the results. This can be done at your doctor's office or this facility. Some pharmacies and grocery stores offer automated blood pressure machines for your use. Follow Up: If your blood pressure is "high" (over 120/80) on 2 out of 3 days, you will need to follow up with your doctor for further evaluation and treatment. DO NOT PUT THIS OFF! Untreated high blood pressure increases the risk for heart attack, also known as acute myocardial infarction, or AMI, and stroke. It is a treatable condition. Get Prompt Medical Attention if any of the following occur: Chest pain or shortness of breath Severe headache Throbbing or rushing sound in the ears Nosebleed Sudden severe abdominal pain Extreme drowsiness, confusion or fainting Dizziness or vertigo (dizziness with spinning sensation) Weakness of an arm or leg or one side of the face Difficulty with speech or vision Chest Pain, Noncardiac Based on your visit today, the exact cause of your chest pain is not certain. Your condition does not seem serious and your pain does not appear to be coming from your heart. However, sometimes the signs of a serious problem take more time to appear. Therefore, please watch for the warning signs listed below. Home Care: Rest today and avoid strenuous activity. Take any prescribed medicine as directed. Follow Up with your doctor or this facility as instructed or if you do not start to feel better within 24 hours. Get Prompt Medical Attention if any of the following occur: A change in the type of pain: if it feels different, becomes more severe, lasts longer, or begins to spread into your shoulder, arm, neck, jaw or back Shortness of breath or increased pain with breathing Cough with dark colored sputum (phlegm) or blood Weakness, dizziness, or fainting Fever of 100.4F (38C) or higher, or as directed by your healthcare provider Swelling, pain or redness in one leg Stress Reaction Anxiety is the feeling we all get when we think something bad might happen. It is a normal response to stress and usually causes only a mild reaction. When anxiety becomes more severe, emotions may interfere with daily life. In some cases, you may not even be aware of what it is youre anxious about! During an anxiety reaction, you may feel like you are helpless, nervous, depressed or irritable. Your body may show signs of anxiety in many ways. You may experience dry mouth, shakiness, dizziness, weakness, trouble breathing, chest pressure, headache, nausea, diarrhea, tiredness, inability to sleep or sexual problems. Home Care: 1) Try to locate the sources of stress in your life. They may not be obvious! These may include: -- Daily hassles of life which pile up (traffic jams, missed appointments, car troubles, etc.) -- Major life changes, both good (new baby, job promotion) and bad (loss of job, loss of loved one) -- Overload: feeling that you have too many responsibilities and can't take care of all of them at once -- Feeling helpless, feeling that your problems are beyond what youre able to solve 2) Notice how your body reacts to stress. Learn to listen to your body signals. This will help you take action before the stress becomes severe. 3) When you can, do something about the source of your stress. (Avoid hassles, limit the amount of change that happens in your life at one time and take a break when you feel overloaded). 4) Unfortunately, many stressful situations cannot be avoided. It is necessary to learn HOW TO MANAGE STRESS better. There are many proven methods that will reduce your anxiety. These include simple things like exercise, good nutrition and adequate rest. Also, there are certain techniques that are helpful: relaxation and breathing exercises, visualization, biofeedback and meditation. For more information about this, consult your doctor or go to a local bookstore and review the many books and tapes available on this subject. Follow Up If you feel that your anxiety is not responding to self-help measures, contact your doctor or make an appointment with a counselor. Get Prompt Medical Attention if any of the following occur: -- Your symptoms get worse -- Chest pain or trouble breathing -- Severe headache not relieved by rest and mild pain reliever -- Rapid or irregular heartbeat, fainting Hyperventilation Syndrome Hyperventilation Syndrome is a condition in which you lose control of your breathing. You may find yourself breathing too fast and/or too deep. This can be triggered by pain, anxiety and emotional stress. If hyperventilation continues for more than a few minutes, it can lead to a number of frightening symptoms, such as: Numbness and tingling of the hands, feet and face Clenching of the fingers or toes Dizziness Feeling like you cannot get enough air Chest pains Fainting or feeling like you are going to faint Once these symptoms begin, it is often hard to stop them because they lead to a cycle of more anxiety and more hyperventilation. It is important to understand that this is not a life-threatening condition and it will pass once you are able to relax. Relaxation and stress management methods can be learned and practiced in advance. These can help in the event of a future attack. Home Care: 1) Rest today until feeling back to normal. 2) If symptoms return: Sit or lie down. Remember that what is happening to you is temporary and will pass. Use the relaxation methods you have learned. It is no longer recommended to breathe into a paper bag. Follow Up with your doctor or as directed by our staff if symptoms recur. Get Prompt Medical Attention if any of the following occur: Increasing shortness of breath Fever of 100.0 F (38 C) or higher, or as directed by your healthcare provider Coughing up blood Chest pain that is made worse with each breath Redness, pain or swelling of the leg Ringing in your ears, Severe headache Weakness or fainting Marijuana Abuse Marijuana is the most widely used illegal drug in the [place]. It is called by various names such as pot, weed, blunts, grass, reefer, ganja, hash, hashish. It is usually smoked but can be mixed with foods or brewed as a tea. It is sometimes sold with PCP (Jacob Dust) or amphetamine mixed in it. These drugs can cause other harmful side effects. Marijuana can cause the following effects: Changes in mood (stimulated, happy, drowsy, depressed, paranoid) Hallucinations Increased heart rate and blood pressure Increased appetite Time distortion, difficulty concentrating, impaired memory Lung damage (similar to cigarettes with chronic cough, wheezing, frequent colds and bronchitis) You can become psychologically dependent on marijuana. That means the craving to use the drug is emotional or psychological rather than due to physical withdrawal. Is Marijuana Running Your Life? Here are some of the signs: Relying on marijuana to feel good, forget problems, deal with stress or to relax Wanting to be alone most of the time or only with others who use drugs Losing interest in things that used to be important Changes in school or job performance or attendance Spending a lot of time thinking about how to get marijuana Stealing or selling your things so you can buy marijuana Unable to stop using even though you may want to quit Increasing anxiety, anger,or depression Sleeping too much, changes in eating habits (weight loss or gain) Needing to use more to get the same effect Home Care Once you have become addicted to any drug, quitting is hard to do. Most people find they can't quit without help. So, dont try to do this alone. Talk to someone you trust who can support you. Seek professional help. Avoid people and places where drugs are used. That only increases the temptation to use. Follow Up with your doctor or as advised by our staff. For more information or a referral to a treatment center in your area, contact: Your local mental health center or the National Alcohol and Substance Abuse Information Center (669)-439-6506 www.addictioncareSamba Networks.com National [place] on Alcoholism and Drug Dependence 910-096-BQOR www.ncadd.org Marijuana Anonymous 937-430-3941 www.marijuana-anonymous.org Get Prompt Medical Attention if any of the following occur: You feel extreme depression, fear, anxiety, or anger toward yourself or others You feel out of control You feel that you may try to harm yourself or another Hypokalemia Hypokalemia means a low level of potassium in the blood. This most often occurs in patients who take diuretics (water pills). It can also occur due to severe vomiting or diarrhea. A mild case usually causes no symptoms. It is only found with blood testing. More severe potassium loss causes generalized weakness, muscle or abdominal cramping, heart palpitations (rapid or irregular heartbeats) and low blood pressure. Home Care: 1) Take any potassium supplements prescribed. 2) Eat foods rich in potassium. The highest amount is found in artichoke, baked potatoes, spinach, cantaloupe, honeydew melon, cod, halibut, salmon, and scallops. White, red, or ihlario beans are also very good sources. A modest amount is found in orange juice, bananas, carrots, and tomato juice. 3) Certain types of diuretics (water pills), such as Lasix (furosemide), require that you take potassium supplements for as long as you take the diuretic pills. If you are taking a diuretic, discuss the need for potassium supplements with your doctor. Follow Up with your doctor for a repeat blood test within the next week or as advised by our staff. Get Prompt Medical Attention if any of the following occur: -- Increased weakness -- Feeling dizzy -- Irregular heartbeat, extra beats or very fast heart rate -- Fainting spell How To Quit Smoking Smoking is one of the hardest habits to break. About half of all those who have ever smoked have been able to quit, and most of those (about 70%) who still smoke want to quit. Here are some of the best ways to stop smoking. Keep Trying: It takes most smokers about 8 tries before they are finally able to fully quit. So, the more often you try and fail, the better your chance of quitting the next time! So, don't give up! Go Cold [place]: Most ex-smokers quit cold turkey. Trying to cut back gradually doesn't seem to work as well, perhaps because it continues the smoking habit. Also, it is possible to fool yourself by inhaling more while smoking fewer cigarettes. This results in the same amount of nicotine in your body! Get Support: Support programs can make an important difference, especially for the heavy smoker. These groups offer lectures, methods to change your behavior and peer support. Call the free national Quitline for more information. 271-ZNPT-IHF (517-700-6176). Low-cost or free programs are offered by many hospitals, local chapters of the [place] [employer] (377-827-8252) and the [place] (145-931-1183). Support at home is important too. Non-smokers can help by offering praise and encouragement. If the smoker fails to quit, encourage them to try again! [id number]-[id number]-Rsldddd Medicines: For those who can't quit on their own, Nicotine Replacement Therapy (NRT) may make quitting much easier. Certain aids such as the nicotine patch, gum and lozenge are available without a prescription. However, it is best to use these under the guidance of your doctor. The skin patch provides a steady supply of nicotine to the body. Nicotine gum and lozenge gives temporary bursts of low levels of nicotine. Both methods take the edge off the craving for cigarettes. WARNING: If you feel symptoms of nicotine overdose, such as nausea, vomiting, dizziness, weakness, or fast heartbeat, stop using these and see your doctor. Prescription Medicines: After evaluating your smoking patterns and prior attempts at quitting, your doctor may offer a prescription medicine such as bupropion (Zyban, Wellbutrin), varenicline (Chantix, Champix), a niocotine inhaler or nasal spray. Each has its unique advantage and side effects which your doctor can review with you. Health Benefits Of Quitting: The benefits of quitting start right away and keep improving the longer you go without smokin minutes: blood pressure and pulse return to normal 8 hours: oxygen levels return to normal 2 days: ability to smell and taste begins to improve as damaged nerves start to regrow 2-3 weeks: circulation and lung function improves 1-9 months: decreased cough, congestion and shortness of breath; less tired 1 year: risk of heart attack decreases by half 5 years: risk of lung cancer decreases by half; risk of stroke becomes the same as a non-smoker For information about how to quit smoking, visit the following links: National [employer] [place] , Clearing the Air, Quit Smoking Today - an online booklet. http://www.smokefree.gov/pubs/clearing_the_air.pdf Smokefree.gov http://smokefree.gov/ QuitNet http://www.quitnet.com/ You have been given the following additional information: Hypertension, To Be Confirmed Chest Pain, Noncardiac Anxiety Reaction Hyperventilation Syndrome Marijuana Abuse Hypokalemia Smoking Cessation (Electronically signed by Pipo Vargas DO 09/07/2016 21:21)
== END 2016-09-07 19:42 | disposition home or self-care (01) ==
LOC: ED SRH 15:16
DX: R07.89 Other chest pain (principal); I10 Essential (primary) hypertension; R06.4 Hyperventilation; F41.1 Generalized anxiety disorder; E87.6 Hypokalemia; F17.210 Nicotine dependence, cigarettes, uncomplicated; F12.10 Cannabis abuse, uncomplicated; E11.9 Type 2 diabetes mellitus without complications; J45.909 Unspecified asthma, uncomplicated; Z88.5 Allergy status to narcotic agent
CPT/HCPCS: 90047; 90100; 90616; 91556; 92720; 95059